=== PATIENT | female | born 1955 | race Caucasian/White ===

== ENCOUNTER → 2021-08-30 | Outpatient (BNVA) | payer MEDICARE, OTHER, SELFPAY | PROVIDERS: PCP Internal Medicine; Visit Provider Psychiatry & Neurology Neurology | DX: G43.909 Migraine, unspecified, not intractable, without status migrainosus (principal); G24.3 Spasmodic torticollis | CPT/HCPCS: 64616; 99211; J0585 ==

== ENCOUNTER → 2021-11-29 08:28 | Outpatient (BNVA) | payer MEDICARE, OTHER, SELFPAY | PROVIDERS: PCP Internal Medicine; Visit Provider Psychiatry & Neurology Neurology | DX: G24.3 Spasmodic torticollis (principal); G43.909 Migraine, unspecified, not intractable, without status migrainosus | CPT/HCPCS: 64616; 99211; J0585 ==

== ENCOUNTER → 2022-03-11 08:24 | Outpatient (BNVA) | payer MEDICARE, OTHER, SELFPAY | PROVIDERS: PCP Internal Medicine; Visit Provider Psychiatry & Neurology Neurology | DX: G43.909 Migraine, unspecified, not intractable, without status migrainosus (principal); G24.3 Spasmodic torticollis | CPT/HCPCS: 64616; 99211; J0585 ==

== ENCOUNTER → 2022-09-07 12:12 | Outpatient (BNVA) | payer MEDICARE, OTHER, SELFPAY | PROVIDERS: PCP Internal Medicine; Visit Provider Psychiatry & Neurology Neurology | DX: G24.3 Spasmodic torticollis (principal); G43.909 Migraine, unspecified, not intractable, without status migrainosus | CPT/HCPCS: 64616; 99211; J0585 ==

== ENCOUNTER 2022-12-19 07:26 | Outpatient (AMB) | payer MEDICARE, OTHER, SELFPAY ==
--- NOTE | 2022-12-19 07:31 | MHC.OFFVIS ---
Intake Vital Signs 12/19/22 07:33 Weight 160 lb 2 oz BP 110/56 L Blood Pressure Location Rt brachial Position Sitting Pulse 72 Pulse Source Pulse Oximeter Pulse Oximetry (%) 97 Oxygen Delivery Method Room Air Intake Visit Reasons: Botox(B&B) - Confirmed Intake Note: F/U Botox Injection Appraiser Irrigation Tax Required: No Allergies No Known Allergies Allergy (Verified 12/19/22 07:33) Medication List - Last Reconciled 12/19/22 by Ashley Tolbert MD cholecalciferol (vitamin D3) 25 mcg PO DAILY fluticasone propionate 50 mcg/actuation (Children's Flonase Allergy Relief) 1 spray intranasal DAILY omeprazole 20 mg PO DAILY onabotulinumtoxinA (Botox) 100 units IM [id number] sumatriptan 20 mg/actuation 20 mg intranasal Q2H PRN 90 days HPI HPI Comments History of Present Illness Details 67y/o female comes for treatment of her cervical dystonia and migraines ? Side effects including spread of toxin effect, dysphagia, breathing difficulties , bronchitis etc was discussed in detail and the patient agreed to the procedure.An informed consent was obtained ??? Botulinum toxin type A 200units X 1 -was diluted with 4 cc of normal saline at a concentration of 25 units in 0.5cc saline. Lot number [id number] expiration 06/2025 ??? Muscles injected ???Right Splenius - 75 units e ach ???Right levator 50 units each ???left splenius 25 units each Left levator 25 Right trapezius 25 units ??? Total used 200 units GERD is better with omeprazole PFSH Medical History Cervicalgia Melanoma Migraine Osteoporosis Spasmodic torticollis Tremors of nervous system Family History Family/Other HTN (hypertension) Father History of open heart surgery Mother Brain bleed Social History Alcohol intake: never Patient Tobacco Use Status: Former Tobacco user Physical Exam Vital Signs: Last Vital Signs Pulse 72 12/19/22 07:33 BP 110/56 L 12/19/22 07:33 Pulse Ox 97 07/31/23 07:33 Oxygen Delivery Method Room Air 07/31/23 07:33 Const Other: antecollis and right laterocollis General: cooperative and healthy appearing Orientation/consciousness: patient oriented x3 Neuro General: patient oriented x3, gait normal, tone normal and moves all extremities Cranial nerves: Yes CN's II-XII intact bilaterally Cognition (Neuro): normal cognition Gait exam (Neuro): Other gait observations present (antecollis) Office Procedures Botulinum toxin Injection 71081 - Dystonia Procedure code (CPT) selection complete Office Meds onabotulinumtoxinA Performing Provider: Ashley Tolbert MD Administered by: Ashley Tolbert MD on 12/19/22 15:59 Dose Route Admin Location Lot Number Expiration Date NDC Combine Mechanic 200 unit IM [id number] 06/22/25 6895-2978-74 ALLERGAN/BOTOX Comments: see HPI Assessment & Plan Assessment & Plan (1) Spasmodic torticollis: Code(s): G24.3 - Spasmodic torticollis (2) Migraine: Code(s): G43.909 - Migraine, unspecified, not intractable, without status migrainosus Plan Patient tolerated the procedure well she will call with any side effects Orders: Orders AMB Botulinum toxin Injection Today G24.3 - Spasmodic torticollis Coding Level of Care Code Est Pt Level 1 (70737) Diagnoses Spasmodic torticollis G24.3 Migraine G43.909 CPT Codes Botox Injection - Botox 4: 53211 - Dystonia ([id number])
[2022-12-19 07:33] VITALS: BP 110/56; PULSE 72; O2SAT 97
== END 2022-12-19 08:06 | disposition home or self-care (01) ==
PROVIDERS: Visit Provider Psychiatry & Neurology Neurology
DX: G24.3 Spasmodic torticollis (principal); G43.909 Migraine, unspecified, not intractable, without status migrainosus
CPT/HCPCS: 64616

== ENCOUNTER → 2022-12-19 07:26 | Outpatient (BNVA) | payer MEDICARE, OTHER, SELFPAY | PROVIDERS: Visit Provider Psychiatry & Neurology Neurology | DX: G43.909 Migraine, unspecified, not intractable, without status migrainosus (principal); G24.3 Spasmodic torticollis | CPT/HCPCS: 64616; 99211; J0585 ==

== ENCOUNTER 2023-04-03 10:12 | Outpatient (AMB) | payer MEDICARE, OTHER, SELFPAY ==
--- NOTE | 2023-04-03 10:19 | A.OFFVIS_ITS ---
Intake Vital Signs 04/03/23 10:20 Height 5 ft 9 in Weight 160 lb 8 oz BMI 23.7 BP 110/82 Blood Pressure Location Rt brachial Position Sitting Respiration 16 Pulse 82 Pulse Source Pulse Oximeter Pulse Oximetry (%) 99 Oxygen Delivery Method Room Air Intake Visit Reasons: Botox(B&B) - Confirmed Intake Note: Pt presents to office for Botox injections. Loan Processing Supervisor Required: No Allergies No Known Allergies Allergy (Verified 04/03/23 10:19) Medication List - Last Reconciled 04/03/23 by Ashley Tolbert MD cholecalciferol (vitamin D3) 25 mcg PO DAILY fluticasone propionate 50 mcg/actuation (Children's Flonase Allergy Relief) 1 spray intranasal DAILY omeprazole 20 mg PO DAILY onabotulinumtoxinA (Botox) 100 units IM [id number] sumatriptan 20 mg/actuation 20 mg intranasal Q2H PRN 90 days HPI HPI Comments History of Present Illness Details 67y/o female comes for treatment of her cervical dystonia and migraines ? Side effects including spread of toxin effect, dysphagia, breathing difficulties , bronchitis etc was discussed in detail and the patient agreed to the procedure.An informed consent was obtained ??? Botulinum toxin type A 200units X 1 -was diluted with 4 cc of normal saline at a concentration of 25 units in 0.5cc saline. Lot number [id number] expiration 06/2025 ??? Muscles injected ???Right Splenius - 75 units e ach ???Right levator 50 units each ???left splenius 25 units each Left levator 25 Right trapezius 25 units ??? Total used 200 units GERD is better with omeprazole PFSH Medical History Melanoma Cervicalgia Osteoporosis Tremors of nervous system Spasmodic torticollis Migraine Family History Family/Other HTN (hypertension) Father History of open heart surgery Mother Brain bleed Social History Alcohol intake: never Patient Tobacco Use Status: Former Tobacco user Physical Exam Vital Signs: Last Vital Signs Pulse 82 04/03/23 10:20 Resp 16 04/03/23 10:20 BP 110/82 04/03/23 10:20 Pulse Ox 99 04/03/23 10:20 Oxygen Delivery Method Room Air 04/03/23 10:20 BMI result Body Mass Index 23.7 Const Other: antecollis and right laterocollis General: cooperative and healthy appearing Orientation/consciousness: patient oriented x3 Neuro General: patient oriented x3, gait normal, tone normal and moves all extremities Cranial nerves: Yes CN's II-XII intact bilaterally Cognition (Neuro): normal cognition Gait exam (Neuro): Other gait observations present (antecollis) Office Procedures Botulinum toxin Injection 95970 - Dystonia Procedure code (CPT) selection complete Office Meds onabotulinumtoxinA 200 unit solution for injection Performing Provider: Ashley Tolbert MD Performing Location: [facility] [place] [facility] Administered by: Ashley Tolbert MD on 04/03/23 11:02 Dose Route Admin Location Dispensed Lot Number Expiration Date [facility] Surgical Garment Assembly Supervisor 200 unit IM 200 units [id number] 06/22/25 9439-4703-85 [employer]ERGAN/BOTOX Comments: see hpi Assessment & Plan Assessment & Plan (1) Spasmodic torticollis: Code(s): G24.3 - Spasmodic torticollis (2) Migraine: Code(s): G43.909 - Migraine, unspecified, not intractable, without status migrainosus Plan Patient tolerated the procedure well she will call with any side effects Orders: Orders AMB Botulinum toxin Injection Today G24.3 - Spasmodic torticollis Coding Level of Care Code Est Pt Level 1 (37470) Diagnoses Spasmodic torticollis G24.3 Migraine G43.909 CPT Codes Botox Injection - Botox 4: 24455 - Dystonia ([id number])
[2023-04-03 10:20] VITALS: BP 110/82; PULSE 82; RESP 16; O2SAT 99; BMI 23.7
== END 2023-04-03 10:50 | disposition home or self-care (01) ==
PROVIDERS: PCP Internal Medicine; Visit Provider Psychiatry & Neurology Neurology
DX: G24.3 Spasmodic torticollis (principal)
CPT/HCPCS: 64616

== ENCOUNTER → 2023-04-03 10:12 | Outpatient (BNVA) | payer MEDICARE, OTHER, SELFPAY | PROVIDERS: PCP Internal Medicine; Visit Provider Psychiatry & Neurology Neurology | DX: G24.3 Spasmodic torticollis (principal); G43.909 Migraine, unspecified, not intractable, without status migrainosus | CPT/HCPCS: 64616; 99211; J0585 ==

== ENCOUNTER 2023-09-06 07:29 | Outpatient (AMB) | payer MEDICARE, OTHER, SELFPAY ==
--- NOTE | 2023-09-06 07:33 | A.OFFVIS_ITS ---
Intake Vital Signs 09/06/23 07:34 Height 5 ft 9 in Weight 160 lb BMI 23.6 BP 122/78 Blood Pressure Location Rt brachial Position Sitting Respiration 16 Pulse 85 Pulse Source Pulse Oximeter Pulse Oximetry (%) 97 Oxygen Delivery Method Room Air Intake Visit Reasons: Botox(B&B)-conf Intake Note: Pt presents to the office for Botox injections. Fur Cutting Machine Operator Required: No Allergies No Known Allergies Allergy (Verified 09/06/23 07:34) Medication List - Last Reconciled 09/06/23 by Ashley Tolbert MD cholecalciferol (vitamin D3) 25 mcg PO DAILY fluticasone propionate 50 mcg/actuation (Children's Flonase Allergy Relief) 1 spray intranasal DAILY omeprazole 20 mg PO DAILY onabotulinumtoxinA (Botox) 100 units IM [id number] sumatriptan 20 mg/actuation 20 mg intranasal Q2H PRN 90 days HPI HPI Comments History of Present Illness Details 68y/o female comes for treatment of her cervical dystonia and migraines ? Side effects including spread of toxin effect, dysphagia, breathing difficulties , bronchitis etc was discussed in detail and the patient agreed to the procedure.An informed consent was obtained ??? Botulinum toxin type A 200units X 1 -was diluted with 4 cc of normal saline at a concentration of 25 units in 0.5cc saline. Lot number [id number] expiration 10/2025 ??? Muscles injected ???Right Splenius - 75 units e ach ???Right levator 50 units each ???left splenius 25 units each Left levator 25 Right trapezius 25 units ??? Total used 200 units GERD is better with omeprazole PFSH Medical History Melanoma Cervicalgia Osteoporosis Tremors of nervous system Spasmodic torticollis Migraine Family History Family/Other HTN (hypertension) Father History of open heart surgery Mother Brain bleed Social History Alcohol intake: never Patient Tobacco Use Status: Former Tobacco user Physical Exam Vital Signs: Last Vital Signs Pulse 85 09/06/23 07:34 Resp 16 09/06/23 07:34 BP 122/78 09/06/23 07:34 Pulse Ox 97 09/06/23 07:34 Oxygen Delivery Method Room Air 09/06/23 07:34 BMI result Body Mass Index 23.6 Const Other: antecollis and right laterocollis General: cooperative and healthy appearing Orientation/consciousness: patient oriented x3 Neuro General: patient oriented x3, gait normal, tone normal and moves all extremities Cranial nerves: Yes CN's II-XII intact bilaterally Cognition (Neuro): normal cognition Gait exam (Neuro): Other gait observations present (antecollis) Office Procedures Botulinum toxin Injection 66856 - Dystonia Procedure code (CPT) selection complete Office Meds onabotulinumtoxinA 200 unit solution for injection Performing Provider: Ashley Tolbert MD Performing Location: [facility] [place] [facility] Administered by: Ashley Tolbert MD on 09/06/23 08:12 Dose Route Admin Location Dispensed Lot Number Expiration Date [facility] Fire Sprinkler Inspector 200 unit subcut 200 units [id number] 10/20/25 8803-3322-84 [employer]ERGAN/BOTOX Comments: see hpi Assessment & Plan Assessment & Plan (1) Spasmodic torticollis: Code(s): G24.3 - Spasmodic torticollis (2) Migraine: Code(s): G43.909 - Migraine, unspecified, not intractable, without status migrainosus Plan Patient tolerated the procedure well she will call with any side effects Orders: Orders AMB Botulinum toxin Injection Today G24.3 - Spasmodic torticollis Medications: New onabotulinumtoxinA 200 units subcut ONCE 1 ea 0RF spasmodic torticollis G24.3 - Spasmodic torticollis Coding Level of Care Code Est Pt Level 1 (23075) Diagnoses Spasmodic torticollis G24.3 Migraine G43.909 CPT Codes Botox Injection - Botox 4: 12061 - Dystonia ([id number])
[2023-09-06 07:34] VITALS: BP 122/78; PULSE 85; RESP 16; O2SAT 97; BMI 23.6
== END 2023-09-06 08:06 | disposition home or self-care (01) ==
PROVIDERS: PCP Internal Medicine; Visit Provider Psychiatry & Neurology Neurology
DX: G24.3 Spasmodic torticollis (principal)
CPT/HCPCS: 64616

== ENCOUNTER → 2023-09-06 07:29 | Outpatient (BNVA) | payer MEDICARE, OTHER, SELFPAY | PROVIDERS: PCP Internal Medicine; Visit Provider Psychiatry & Neurology Neurology | DX: G24.3 Spasmodic torticollis (principal); G43.709 Chronic migraine without aura, not intractable, without status migrainosus | CPT/HCPCS: 64616; 99211; J0585 ==

== ENCOUNTER 2023-12-07 07:51 | Outpatient (AMB) | payer MEDICARE, OTHER, SELFPAY ==
--- NOTE | 2023-12-07 07:55 | MHC.OFFVIS ---
Vital Signs 12/07/23 07:56 Height 5 ft 9 in Weight 160 lb BMI 23.6 BP 108/70 Blood Pressure Location Rt brachial Position Sitting Respiration 16 Pulse 73 Pulse Source Pulse Oximeter Pulse Oximetry (%) 98 Oxygen Delivery Method Room Air Intake Visit Reasons: Botox - Confirmed Intake Note: Pt presents tot he office for Botox injections for migraines. Lining Machine Tender Required: No Allergies No Known Allergies Allergy (Verified 12/07/23 07:55) Medication List - Last Reconciled 12/07/23 by Ashley Tolbert MD cholecalciferol (vitamin D3) 25 mcg PO DAILY fluticasone propionate 50 mcg/actuation (Children's Flonase Allergy Relief) 1 spray intranasal DAILY omeprazole 20 mg PO DAILY onabotulinumtoxinA (Botox) 100 units IM [id number] sumatriptan 20 mg/actuation 20 mg intranasal Q2H PRN 90 days HPI Comments Details: 68y/o female comes for treatment of her cervical dystonia and migraines ? Side effects including spread of toxin effect, dysphagia, breathing difficulties , bronchitis etc was discussed in detail and the patient agreed to the procedure.An informed consent was obtained ??? Botulinum toxin type A 200units X 1 -was diluted with 4 cc of normal saline at a concentration of 25 units in 0.5cc saline. Lot number [id number] expiration 12/2025 ??? Muscles injected ???Right Splenius - 75 units e ach ???Right levator 50 units each ???left splenius 25 units each Left levator 25 Right trapezius 25 units ??? Total used 200 units GERD is better with omeprazole PFSH Medical History Melanoma Cervicalgia Osteoporosis Tremors of nervous system Spasmodic torticollis Migraine Family History Family/Other HTN (hypertension) Father History of open heart surgery Mother Brain bleed Social History Alcohol intake: never Patient Tobacco Use Status: Former Tobacco user Physical Exam Vital Signs: Last Vital Signs Pulse 73 12/07/23 07:56 Resp 16 12/07/23 07:56 BP 108/70 12/07/23 07:56 Pulse Ox 98 12/07/23 07:56 Oxygen Delivery Method Room Air 12/07/23 07:56 BMI result Body Mass Index 23.6 Const Other: antecollis and right laterocollis General: cooperative and healthy appearing Orientation/consciousness: patient oriented x3 Neuro General: patient oriented x3, gait normal, tone normal and moves all extremities Cranial nerves: Yes CN's II-XII intact bilaterally Cognition (Neuro): normal cognition Gait exam (Neuro): Other gait observations present (antecollis) Office Procedures Botulinum toxin Injection 84703 - Dystonia Procedure code (CPT) selection complete Office Meds onabotulinumtoxinA 200 unit solution for injection Performing Provider: Ashley Tolbert MD Performing [place] [facility] [place] [facility] Administered by: Ashley Tolbert MD on 12/07/23 08:47 Dose Route Admin Location Dispensed Lot Number Expiration Date [facility] Pulmonary Function Technologist 200 unit IM 200 units [id number] 12/20/25 1980-7029-23 [employer]ERGAN/BOTOX Comments: see HPI Assessment & Plan Assessment & Plan (1) Spasmodic torticollis: Code(s): G24.3 - Spasmodic torticollis Category: Medical (2) Migraine: Code(s): G43.909 - Migraine, unspecified, not intractable, without status migrainosus Category: Medical Plan Patient tolerated the procedure well she will call with any side effects Orders: Orders AMB Botulinum toxin Injection Today G24.3 - Spasmodic torticollis Medications: New onabotulinumtoxinA 200 units IM ONCE 1 ea 0RF spasmodic torticollis G24.3 - Spasmodic torticollis Coding Level of Care Code Est Pt Level 1 (60985) Diagnoses Spasmodic torticollis G24.3 Migraine G43.909 CPT Codes Botox Injection - Botox 4: 61763 - Dystonia ([id number])
[2023-12-07 07:56] VITALS: BP 108/70; PULSE 73; RESP 16; O2SAT 98; BMI 23.6
== END 2023-12-07 08:21 | disposition home or self-care (01) ==
PROVIDERS: PCP Internal Medicine; Visit Provider Psychiatry & Neurology Neurology
DX: G24.3 Spasmodic torticollis (principal)
CPT/HCPCS: 64616

== ENCOUNTER → 2023-12-07 07:51 | Outpatient (BNVA) | payer MEDICARE, OTHER, SELFPAY | PROVIDERS: PCP Internal Medicine; Visit Provider Psychiatry & Neurology Neurology | DX: G24.3 Spasmodic torticollis (principal); G43.909 Migraine, unspecified, not intractable, without status migrainosus | CPT/HCPCS: 64616; 99211; J0585 ==

== ENCOUNTER 2024-04-03 07:45 | Outpatient (AMB) | payer MEDICARE, OTHER, SELFPAY ==
[2024-04-03 07:51] VITALS: BMI 23.6
--- NOTE | 2024-04-03 07:51 | MHC.OFFVIS ---
Vital Signs 04/03/24 07:51 Height 5 ft 9 in Weight 160 lb BMI 23.6 Intake Visit Reasons: Botox (B&B) Allergies No Known Allergies Allergy (Verified 04/03/24 07:52) Medication List - Last Reconciled 04/03/24 by Ashley Tolbert MD cholecalciferol (vitamin D3) 25 mcg PO DAILY fluticasone propionate 50 mcg/actuation (Children's Flonase Allergy Relief) 1 spray intranasal DAILY omeprazole 20 mg PO DAILY onabotulinumtoxinA (Botox) 100 units IM [id number] sumatriptan 20 mg/actuation 20 mg intranasal Q2H PRN 90 days HPI Comments Details: 68y/o female comes for treatment of her cervical dystonia and migraines ? Side effects including spread of toxin effect, dysphagia, breathing difficulties , bronchitis etc was discussed in detail and the patient agreed to the procedure.An informed consent was obtained ??? Botulinum toxin type A 200units X 1 -was diluted with 4 cc of normal saline at a concentration of 25 units in 0.5cc saline. Lot number [id number] expiration 06/2026 ??? Muscles injected ???Right Splenius - 75 units e ach ???Right levator 50 units each ???left splenius 25 units each Left levator 25 Right trapezius 25 units ??? Total used 200 units GERD is better with omeprazole PFSH Medical History Melanoma Cervicalgia Osteoporosis Tremors of nervous system Spasmodic torticollis Migraine Family History Family/Other HTN (hypertension) Father History of open heart surgery Mother Brain bleed Social History Alcohol intake: never Patient Tobacco Use Status: Former Tobacco user Physical Exam Vital Signs: BMI result Body Mass Index 23.6 Const Other: antecollis and right laterocollis General: cooperative and healthy appearing Orientation/consciousness: patient oriented x3 Neuro General: patient oriented x3, gait normal, tone normal and moves all extremities Cranial nerves: Yes CN's II-XII intact bilaterally Cognition (Neuro): normal cognition Gait exam (Neuro): Other gait observations present (antecollis) Office Procedures Botulinum toxin Injection 62880 - Dystonia Procedure code (CPT) selection complete Office Meds onabotulinumtoxinA 200 unit solution for injection Performing Provider: Ashley Tolbert MD Performing Location: [facility] [place] [facility] Administered by: Ashley Tolbert MD on 04/03/24 08:34 Dose Route Admin Location Dispensed Lot Number Expiration Date NDC Gas Engine Operator 200 unit IM 200 units [id number] 06/22/26 1155-6912-43 [employer]ERGAN/BOTOX Comments: see HPI Assessment & Plan Assessment & Plan (1) Spasmodic torticollis: Code(s): G24.3 - Spasmodic torticollis Category: Medical (2) Migraine: Code(s): G43.909 - Migraine, unspecified, not intractable, without status migrainosus Category: Medical Qualifiers: Migraine type: other Status migrainosus presence: without status migrainosus Intractability: not intractable Qualified Code(s): G43.809 - Other migraine, not intractable, without status migrainosus Plan Patient tolerated the procedure well she will call with any side effects Orders: Orders AMB Botulinum toxin Injection Today G24.3 - Spasmodic torticollis Medications: New onabotulinumtoxinA 200 units IM ONCE 1 ea 0RF spasmodic torticollis G24.3 - Spasmodic torticollis Coding Level of Care Code Est Pt Level 1 (40074) Diagnoses Spasmodic torticollis G24.3 Other migraine without status migrainosus, not intractable G43.809 Migraine type: other Status migrainosus presence: without status migrainosus Intractability: not intractable CPT Codes Botox Injection - Botox 4: 61533 - Dystonia ([id number])
== END 2024-04-03 08:12 | disposition home or self-care (01) ==
PROVIDERS: PCP Internal Medicine; Visit Provider Psychiatry & Neurology Neurology
DX: G24.3 Spasmodic torticollis (principal)
CPT/HCPCS: 64616

== ENCOUNTER → 2024-04-03 07:45 | Outpatient (BNVA) | payer MEDICARE, OTHER, SELFPAY | PROVIDERS: PCP Internal Medicine; Visit Provider Psychiatry & Neurology Neurology | DX: G24.3 Spasmodic torticollis (principal); G43.809 Other migraine, not intractable, without status migrainosus | CPT/HCPCS: 64616; 99211; J0585 ==

== ENCOUNTER 2024-09-10 07:48 | Outpatient (AMB) | payer MEDICARE, OTHER, SELFPAY ==
--- NOTE | 2024-09-10 07:51 | A.OFFVIS_ITS ---
Vital Signs 09/10/24 07:52 09/10/24 07:56 Height 5 ft 9 in 5 ft 9 in Weight 158 lb 158 lb BMI 23.3 23.3 BP 128/70 Blood Pressure Location Rt brachial Position Sitting Pulse 75 Pulse Source Pulse Oximeter Pulse Oximetry (%) 97 Oxygen Delivery Method Room Air Intake Visit Reasons: Botox Intake Note: patient presents for Botox injection pharmacy supplied Allergies No Known Allergies Allergy (Verified 09/10/24 07:53) Medication List - Last Reconciled 09/10/24 by Ashley Tolbert MD cholecalciferol (vitamin D3) 25 mcg PO DAILY omeprazole 20 mg PO DAILY onabotulinumtoxinA (Botox) 100 units IM [id number] sumatriptan 20 mg/actuation 20 mg intranasal Q2H PRN 90 days HPI Comments Details: 69y/o female comes for treatment of her cervical dystonia and migraines ? Side effects including spread of toxin effect, dysphagia, breathing difficulties , bronchitis etc was discussed in detail and the patient agreed to the procedure.An informed consent was obtained ??? Botulinum toxin type A 200units X 1 -was diluted with 4 cc of normal saline at a concentration of 25 units in 0.5cc saline. Lot number [id number] expiration 08/2026 ??? Muscles injected ???Right Splenius - 75 units e ach ???Right levator 50 units each ???left splenius 25 units each Left levator 25 Right trapezius 25 units ??? Total used 200 units GERD is better with omeprazole PFSH Medical History Melanoma Cervicalgia Osteoporosis Tremors of nervous system Spasmodic torticollis Migraine Family History Family/Other HTN (hypertension) Father History of open heart surgery Mother Brain bleed Social History Alcohol intake: never Patient Tobacco Use Status: Former Tobacco user Physical Exam Vital Signs: Last Vital Signs Pulse 75 09/10/24 07:52 BP 128/70 09/10/24 07:56 Pulse Ox 97 09/10/24 07:52 Oxygen Delivery Method Room Air 09/10/24 07:52 BMI result Body Mass Index 23.3 Const Other: antecollis and right laterocollis General: cooperative and healthy appearing Orientation/consciousness: patient oriented x3 Neuro General: patient oriented x3, gait normal, tone normal and moves all extremities Cranial nerves: Yes CN's II-XII intact bilaterally Cognition (Neuro): normal cognition Gait exam (Neuro): Other gait observations present (antecollis) Office Procedures Botulinum toxin Injection 08253 - Dystonia Procedure code (CPT) selection complete Office Meds onabotulinumtoxinA 200 unit solution for injection Performing Provider: Ashley Tolbert MD Performing Location: [facility] [place] [facility] Administered by: Ashley Tolbert MD on 09/10/24 08:43 Dose Route Admin Location Dispensed Lot Number Expiration Date [facility] Commission Auditor 200 unit IM 200 units 2906-3103-51 ALLERGAN/BOTOX Comments: see HPI Assessment & Plan Assessment & Plan (1) Spasmodic torticollis: Code(s): G24.3 - Spasmodic torticollis Category: Medical (2) Migraine: Code(s): G43.909 - Migraine, unspecified, not intractable, without status migrainosus Category: Medical Qualifiers: Migraine type: other Status migrainosus presence: without status migrainosus Intractability: not intractable Qualified Code(s): G43.809 - Other migraine, not intractable, without status migrainosus Plan Patient tolerated the procedure well she will call with any side effects Orders: Orders AMB Botulinum toxin Injection Today G24.3 - Spasmodic torticollis Medications: New onabotulinumtoxinA 200 units IM ONCE 1 ea 0RF spasmodic torticollis G24.3 - Spasmodic torticollis Coding Level of Care Code Est Pt Level 1 (67373) Diagnoses Spasmodic torticollis G24.3 Other migraine without status migrainosus, not intractable G43.809 Migraine type: other Status migrainosus presence: without status migrainosus Intractability: not intractable CPT Codes Botox Injection - Botox 4: 67866 - Dystonia ([id number])
--- OUTSIDE RECORDS SUMMARY | 2024-09-10 07:51 | XMS_ITS | Clinical Summary ---
Author Organization [facility] [address] [facility] Address [address] [place] [address] Phone Care Team Providers Care Field Foreman Name Role Phone Etelvina Jimenez MD Primary Care Provider Allergies Active Allergy Reactions Criticality Noted Date Comments Baclofen 03/19/2019 Medications SUMAtriptan (IMITREX) 20 mg/actuation nasal spray PLEASE SEE ATTACHED FOR DETAILED DIRECTIONS 3 Active ibuprofen (ADVIL,MOTRIN) 800 mg tablet TAKE 1 TABLET EVERY 8 HOURS BY ORAL ROUTE NEEDED FOR 90 DAYS. Active fluticasone propionate (FLONASE) 50 mcg/actuation nasal spray 1 spray. prn Activ e flaxseed oiL oil by Other route. Acti ve cholecalciferol (VITAMIN D-3) 50 mcg (2,000 unit) capsule Take by mouth daily. 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 Overview (04/11/2024): Receives botox injections, followed by neurologist Age-related osteoporosis wit hout current pathological fracture 03/19/2019 Factor V Leiden carrier ([facility] V24) 03/19/2019 Surgical History Surgery Date Site/Laterality Comments COLONOSCOPY 12/01/2021 TAx1 5-year recall ESOPHAGOGASTRODUODENOSCOPY 12/01/2021 negative bx COLONOSCOPY 06/08/2016 Medical History Medical History Date Comments Colon polyp Social History Tobacco Use Types Packs/Day Years Used Date Smoking Tobacco: Former Smokeless Tobacco: Never Alcohol Use Standard Drinks/Week Comments Yes 0 (1 standard drink = 0.6 oz pur e alcohol) occasional Comments Unknown Sex and Gender Information Value Date Recorded Sex Assigned at Not on file Legal Sex Female 8:33 PM EST Gender Identity Not on file Sexual Orientation Not on file Obstetrics History Last Filed Vital Signs Vital Sign Reading Time Taken Comments Blood Pressure - - Pulse - - Temperature - - Respiratory Rate - - Oxygen Saturation - - Inhaled Oxygen Concentration - - Weight 72.1 kg (159 lb) 04/11/2024 2:48 PM EST Height 170.2 cm (5' 7 ) 04/11/2024 2:48 PM EST Body Mass Index 24.9 04/11/2024 2:48 PM EST Plan of Treatment Upcoming Encounters Date Type Department Care Team (Late st Contact Info) Description 11/25/2024 10:[address] [facility] Bone Density [address] [place] [address] Health Maintenance Due Date Last Done Comments Breast Cancer Screening 1955 DTaP,Tdap,and Td Vaccines (1 - Tdap) 1972 Depression Screening 04/23/2022 Falls Risk Assessment 04/23/2022 Hepatitis C Screening 04/23/2022 Medicare Annual Wellness Visit 04/23/2022 Social Influencers of Health Screening 04/23/2022 COVID-19 Vaccine ( season) 2024 03/22/2024, 02/28/2023, 09/29/2022, Additional history exists RSV Immunization Adult Patients (1 - 1-dose 75+ series) 2028 Osteoporosis Screening (Bone Density Screening) 11/20/2033 11/21/2023, 12/10/2021, 09/17/2020, Additional history exists Colorectal Cancer Screening: Colonoscopy 05/01/2034 05/01/2024 Pneumococcal Vaccine: 50+ Years Completed 01/20/2020, 01/04/2019 Zoster Vaccines Completed 12/04/2022, 12/20, 12/18/2013 Influenza Vaccine Completed 01/19/2024, , 01/21/2022, Additional history exists HIB Vaccines Aged Out No longer eligi ble based on patient's age to complete this topic HPV Vaccines Aged Out No longer eligi ble based on patient's age to complete this topic Hepatitis A Vaccines Aged Out No long er eligible based on patient's age to complete this topic Hepatitis B Vaccines Aged Out No long er eligible based on patient's age to complete this topic IPV Vaccines Aged Out No longer eligi ble based on patient's age to complete this topic MMR Vaccines Aged Out No longer eligi ble based on patient's age to complete this topic Meningococcal ACWY Vaccine Aged Out N o longer eligible based on patient's age to complete this topic Meningococcal B Vaccine Aged Out No l onger eligible based on patient's age to complete this topic RSV Immunization Patients Under 20 months Aged Out No longer eligible based on patient's age to complete this topic Varicella Vaccines Aged Out No longer eligible based on patient's age to complete this topic Procedures Procedure Name Priority Date/Time Associated Diagnosis Comments COLONOSCOPY Routine 05/01/2024 9:11 AM EST [facility] DEXA AXIAL SKELETON Routine 11/21/2023 1:39 PM EDT Age-related osteoporosis without current pathological fracture from Last 3 Months or Most Recently Relevant to Health Maintenance Results * COLONOSCOPY (05/01/2024 9:11 AM EST) Anatomical Region Laterality Modality Endoscopy us Historical Provider GI~PROCEDURE ORDERABLES F inal Result * MER[facility] DEXA AXIAL SKELETON (11/21/2023 1:39 PM EDT) Anatomical Region Laterality Modality Mammography 11/21/2023 12:5 8 PM EDT Narrative 11/21/2023 1:39 PM EDT [facility] Diagnostic Imaging Department [address] [place] [id number] Patient: ??ASHWIN UNDERWOOD ?/Age/Sex: 1955 - 68 - F Unit#: ??[id number] ? Location/Status: ??SPDIMAM/REG CLI ? Mnemonic/Ordering Site: ??MAMDEXAAX/SPMAM Ordering Physician: ??ELAINE UREÑA MD Merary Dexa Axial Skeleton - 11/21/23 - 1323 Report Status:Signed History: Low estrogen state due to menopause. Personal history of fracture. Comparison: 12/10/21 Findings: Bone densitometry is performed utilizing dual energy x-ray absorptiometry (DXA) in the Open SiliconigColizer unit. The lumbar spine and proximal femora are evaluated in the AP projection. The FRAX questionaire was completed. The results indicate osteoporosis, with a lumbar spine T-score of -3.9. The Z score is -2.4, indicating very low bone mineral density for age. There has been a statistically significant decrease in bone mineral density in the spine since the previous study. ??The detailed DEXA report will be mailed to the referring physician's office. DualFemur FRAX: 10-year Probability of Fracture: Major Osteoporotic 20.6 percent ??Hip 4.7 percent. IMPRESSION: Osteoporosis. [id number] Dictating Physician: ??CYNDIE SANDERS MD Electronically Signed by: ??CYNDIE SANDERS MD Dic Date/Time: ??11/21/23 1339 Sign date/Time: ??11/21/23 1339 Procedure Note Cyndie Sanders MD - 03/06/2024 [facility] Diagnostic Imaging Department [address] [place], [place] [id number] Patient: YASMINEASHWIN Nicholson /Age/Sex: 1955 - 68 - F Unit#: [id number] Location/Status: SPDIMAM/REG CLI Mnemonic/Ordering Site: MAMDEXAAX/SPMAM Ordering Physician: ELAINE UREÑA MD Merary Dexa Axial Skeleton - 11/21/23 - 1323 Report Status:Signed History: Low estrogen state due to menopause. Personal history offracture. Comparison: 12/10/21 Findings: Bone densitometry is performed utilizing dual energy x-ray absorptiometry(DXA) in the Open SiliconigColizer unit. The lumbar spine and proximal femora areevaluated in the AP projection. The FRAX questionaire was completed. The results indicate osteoporosis, with a lumbar spine T-score of -3.9.The Z score is -2.4, indicating very low bone mineral density for age. There has been a statistically significant decrease in bone mineraldensity in the spine since the previous study. The detailed DEXA report will bemailed to the referring physician's office. DualFemur FRAX: 10-year Probability of Fracture: Major Osteoporotic 20.6 percent Hip 4.7 percent. IMPRESSION: Osteoporosis. [id number] Dictating Physician: CYNDIE SANDERS MD Electronically Signed by: CYNDIE SANDERS MD Dic Date/Time: 11/21/23 1339 Sign date/Time: 11/21/23 1339 us Elaine Ureña MD IMG BI PROCEDURES Final Result from Last 3 Months or Most Recently Relevant to Health Maintenance Insurance MEDICARE [facility] Care Teams Field Foreman Relationship Specialty Start Date End Date Etelvina Jimenez MD [address] [address] PCP - General Internal Medicine 03/04/19
--- OUTSIDE RECORDS SUMMARY | 2024-09-10 07:51 | XMS_ITS | Clinical Summary ---
Author Organization [facility] Address [address] [place] [address] Care Team Providers Care Multi Craft Maintenance Technician Name Role Phone Etelvina Jimenez MD Primary Care Prov ider Allergies Active Allergy Reactions Criticality Noted Date Comments Baclofen 03/19/2019 Medications Medication Sig Dispensed Refills Start Date End Date Status fluticasone (FLONASE) 50 MCG/ACT nasal spray spray/apply 1 spray in each nostril daily. 0 Active SUMAtriptan (IMITREX) 20 MG/ACT nasal spray spray or apply 1 spray inside Nose every 2 (two) hours as needed for migraine. 0 Active IBUPROFEN PO Take 800 mg by mouth every 8 (eight) hours as needed. 0 Active Cholecalciferol (VITAMIN D3) 50 MCG (2000 UT) capsule Take 2,000 Units by mouth daily. 0 Active Active Problems Problem Noted Date Diagnosed Date Hypogammaglobulinemia 03/19/2019 Age-related osteoporosis wit hout current pathological fracture 03/19/2019 Factor V Leiden carrier 03/19/2019 Social History Tobacco Use Types Packs/Day Years Used Date Smoking Tobacco: Former Smokeless Tobacco: Never Alcohol Use Standard Drinks/Week Comments Yes 0 (1 standard drink = 0.6 oz pur e alcohol) Occas. Sex and Gender Information Value Date Recorded Sex Assigned at Not on file Gender Identity Not on file Sexual Orientation Not on file Last Filed Vital Signs Vital Sign Reading Time Taken Comments Blood Pressure 130/72 04/16/2019 1:23 PM EST Pulse 79 04/16/2019 1:23 PM EST Temperature 37.2 ??C (99 ??F) 04/16/2019 1:23 PM EST Respiratory Rate - - Oxygen Saturation - - Inhaled Oxygen Concentration - - Weight 71.2 kg (157 lb) 04/16/2019 1:23 PM EST Height 174 cm (5' 8.5 ) 04/16/2019 1:23 PM EST Body Mass Index 23.52 04/16/2019 1:23 PM EST Plan of Treatment Health Maintenance Due Date Last Done Comments Hepatitis C Screening 1955 COVID-19 Vaccine (#1) 1955 Depression Screening 1965 Preventative Health Evaluation 1971 Colon Cancer Screening (Colonoscopy) 1998 Breast Cancer Screening (Mammogram) 2003 Fall Risk Assessment 2018 Osteoporosis Screening (DEXA Scan) 2018 Shingrix-Zoster Vaccine (2 of 2) 03/01/2019 01/04/2019 Pneumococcal Vaccine (2 of 2 - PPSV23 or PCV20) 01/05/2020 01/04/2019 Influenza Vaccine (#1) 2024 9, 02/12/2018, 12/20/2016, Additional history exists DTap / Tdap / Td (3 - Td or Tdap) 02/14/2028 02/13/2018, 01/14/2008 RSV Adult > 60+ Yrs or (1 - 1-dose 75+ series) 2028 Hepatitis B Vaccines Aged Out No long er eligible based on patient's age to complete this topic RSV Ped < 20 months Aged Out No longe r eligible based on patient's age to complete this topic Care Teams Multi Craft Maintenance Technician Relationship Specialty Start Date End Date Etelvina Jimenez MD [address] [place] [address] PCP - General Internal Medicine 03/04/19
[2024-09-10 07:52] VITALS: PULSE 75; O2SAT 97; BMI 23.3
[2024-09-10 07:56] VITALS: BP 128/70; BMI 23.3
== END 2024-09-10 08:15 | disposition home or self-care (01) ==
LOC: HO.HSMS 07:48
PROVIDERS: PCP Internal Medicine; Visit Provider Psychiatry & Neurology Neurology
DX: G24.3 Spasmodic torticollis (principal)
CPT/HCPCS: 64616

== ENCOUNTER → 2024-09-10 07:48 | Outpatient (BNVA) | payer MEDICARE, OTHER, SELFPAY | PROVIDERS: PCP Internal Medicine; Visit Provider Psychiatry & Neurology Neurology | DX: G43.809 Other migraine, not intractable, without status migrainosus (principal); G24.3 Spasmodic torticollis | CPT/HCPCS: 64616; 99211; J0585 ==

== ENCOUNTER 2024-12-10 07:53 | Outpatient (AMB) | payer MEDICARE, OTHER, SELFPAY ==
--- OUTSIDE RECORDS SUMMARY | 2024-12-10 07:56 | XMS_ITS | Clinical Summary ---
Author Organization [facility] Address [address] [place] [address] Care Team Providers Care Relationship Mgr Name Role Phone Etelvina Jimenez MD Primary [...] 79 04/16/2019 1:23 PM EST Temperature 37.2 C (99 F) 04/16/2019 1:23 PM EST Respiratory Rate - [...] or PCV20) 01/05/2020 01/04/2019 Influenza Vaccine (#1) 2025 9, 02/12/2018, 12/20/2016, Additional history exists DTap [...] age to complete this topic Care Teams Relationship Mgr Relationship Specialty Start Date End Date Etelvina Jimenez MD [address] [place] [address] PCP - General Internal Medicine 03/04/19
--- OUTSIDE RECORDS SUMMARY | 2024-12-10 07:56 | XMS_ITS | Data Portability ---
Author Organization [facility], Main Office Address [address] [facility] [address] [place] [address] Care Team Providers Care Small Products Assembler Name Role Phone JAYNE TREVINO Referring Provider TAMIKO UREÑA Helicopter Crew Chief NICHOLE HURST Polymer Chemist HAN HADDAD Helicopter Mechanic MIRELA GUY Chain Maker JULIA CASIANO Primary Care Provider Assessment No assessment recorded. Plan of Treatment Reminders Order Date Submit Date Provider Last Modified By Organization Details Last Modified Time Details Appointments None recorded . Lab urinalys is, dipstick 2024 025 constantino In-Office Order, Internal Use Only DO Not Attach Compendium DO Not Attach Compendium, Do Not Delete/merge, [id number] 5 11:27:32 urinalys is complete , reflex culture 2024 025 [facility], [address] [place], [address], 11:51:33 lipid panel, serum 2024 025 [facility]OR [facility], [address] [place] [address], [address], 5 06:07:33 urinalys is complete , reflex culture 2024 025 [employer] [facility], [address] [place], [address], 5 10:41:42 urinalys is, dipstick 2023 024 STURGIS In-Office Order, Internal Use Only DO Not Attach Compendium DO Not Attach Compendium, Do Not Delete/merge, [id number] 4 09:59:09 Referral urologis t referral - Recurren t bladder symptoms which started over the last year. One document ed UTI. 2024 025 [facility], [address] [place], [address], 5 11:24:11 Procedures None recorded . Surgeries None recorded . Imaging None recorded . Medication Orders cephalex in 500 mg capsule 2024 025 [id number], [address] [place] [address], [address], 5 05:01:08 sulfamet hoxazole 800 mg-trime thoprim 160 mg tablet 2023 024 [id number], [address] [place], [address], 4 09:52:08 Patient TargetsNo targets recorded. Patient Instructions Encounter Date Encounter Id Patient Instructions Last Modified By Organization Details Last Modified Time 12/25/2023 [id number] painful urinatio n (dysuria): care instructions awychowski Not available 12/25/2023 10:05:38 09/14/2024 [id number] painful urinatio n (dysuria): care instructions awychowski Not available 09/14/2024 11:35:41 11/28/2024 [id number] osteoporosis: ca re instructions Not available 11/28/2024 08:28:32 gastroesophageal reflux disease (GERD): care instructions Not available 11/28/2024 08:28:32 factor V leiden: care instructions Not available 11/28/2024 08:28:32 12/07/2024 [id number] painful urinatio n (dysuria): care instructions constantino Not available 12/07/2024 11:22:20 Reason for Referral Urologist Referral for Dysur ia Recurrent bladder symptoms which started over the last year. One documented UTI. Referring Physician: Isaiah Pastor, Family Medicine, Encounter Date: 12/07/2024 Results Created Date Observation Date Name Description Value Unit Range Abnormal Flag Note LastModifiedBy Organization Detail LastModifiedTime 12/25/19 24 12/28/2023 URINE CULTU RE, ROUTI NE urine culture, routine Final report abnormal Not Available [facility] ([facility]) [address] [facility], [place], [address], 12/28/2023 18:05:58 12/25/19 24 12/28/2023 URINE CULTU RE, ROUTI NE result 1 Escher ichia coli abnormal 10,00 0-25, 000 colon y formi ng units per mL Cefaz donovan <=4 ug/mL Cefaz donovan with an JOSSELINE <=16 predi cts susce ptibi lity to the oral agent s cefac rian, cefdi farhan, cefpo doxim e, cefpr ozil, cefur oxime , cepha lexin , and lorac arbef when used for thera py of uncom plica inder urina ry tract infec tions due to E. coli, Klebs iella pneum oniae , and Prote us mirab ilis. Not Available [facility] ([facility]) [address] [facility], [place], [address], 12/28/2023 18:05:58 12/25/19 24 12/28/2023 URINE CULTU RE, ROUTI NE antimicrobia l susceptibili ty Commen t S = Susce ptibl e; I = Inter media te; R = Resis tant P = Posit shar; N = Negat shar MICS are expre ssed in micro grams per mL Antib iotic RSLT# 1 RSLT# 2 RSLT# 3 RSLT# 4 Amoxi cilli n/Cla vulan ic Acid S Ampic illin S Cefep rae S Ceftr iaxon e S Cefur oxime S Cipro floxa yanna S Ertap enem S Genta micin S Imipe nem S Levof loxac in S Merop enem S Nitro furan toin S Piper acill in/Ta zobac de santiago S Tetra cycli ne S Tobra mycin S Trime thopr im/Torres lfa S Not Available [facility] ([facility]) [address], [place], [address], 12/28/2023 18:05:58 12/25/19 24 12/25/2023 urina lysis , dipst ick Leukocytes Large Not Available In-Offi ce Order Internal Use Only DO Not Attach Compendium DO Not Attach Compendium, Do Not Delete/merge, 12/25/2023 09:15:04 12/25/19 24 12/25/2023 urina lysis , dipst ick Nitritie negati ve Not Available In-Office Order Internal Use Only DO Not Attach Compendium DO Not Attach Compendium, Do Not Delete/merge, 12/25/2023 09:15:04 12/25/19 24 12/25/2023 urina lysis , dipst ick Urobilinogen .2 Not Available In-Of fice Order Internal Use Only DO Not Attach Compendium DO Not Attach Compendium, Do Not Delete/merge, 12/25/2023 09:15:04 12/25/19 24 12/25/2023 urina lysis , dipst ick Protein Negati ve Not Available In-Office Order Internal Use Only DO Not Attach Compendium DO Not Attach Compendium, Do Not Delete/merge, 12/25/2023 09:15:04 12/25/19 24 12/25/2023 urina lysis , dipst ick pH 6.0 Not Available In-Office Order Internal Use Only DO Not Attach Compendium DO Not Attach Compendium, Do Not Delete/merge, 12/25/2023 09:15:04 12/25/19 24 12/25/2023 urina lysis , dipst ick Blood Modera te Not Available In-Office Order Internal Use Only DO Not Attach Compendium DO Not Attach Compendium, Do Not Delete/merge, [facility] 12/25/2023 09:15:04 12/25/19 24 12/25/2023 urina lysis , dipst ick Specific Opdyke 1.010 Not Available In-Off ice Order Internal Use Only DO Not Attach Compendium DO Not Attach Compendium, Do Not Delete/merge, [facility] 12/25/2023 09:15:04 12/25/19 24 12/25/2023 urina lysis , dipst ick Ketone Negati ve Not Available In-Office Order Internal Use Only DO Not Attach Compendium DO Not Attach Compendium, Do Not Delete/merge, [facility] 12/25/2023 09:15:04 12/25/19 24 12/25/2023 urina lysis , dipst ick Bilirubin Negati ve Not Available In-Office Order Internal Use Only DO Not Attach Compendium DO Not Attach Compendium, Do Not Delete/merge, [facility] 12/25/2023 09:15:04 12/25/19 24 12/25/2023 urina lysis , dipst ick Glucose Negati ve Not Available In-Office Order Internal Use Only DO Not Attach Compendium DO Not Attach Compendium, Do Not Delete/merge, [facility] 12/25/2023 09:15:04 12/25/19 24 12/25/2023 urina lysis , dipst ick Appearance Cloudy Not Available In-Offi ce Order Internal Use Only DO Not Attach Compendium DO Not Attach Compendium, Do Not Delete/merge, [facility] 12/25/2023 09:15:04 12/25/19 24 12/25/2023 urina lysis , dipst ick Color Pale Yellow Not Available In-Office Order Internal Use Only DO Not Attach Compendium DO Not Attach Compendium, Do Not Delete/merge, [facility] 12/25/2023 09:15:04 04/26/20 24 04/26/2024 LIPID PANEL cholesterol, total 199 mg/dL 100-19 9 normal Not Available [facility] ([facility]) [address] [facility], [place], [address], 04/27/2024 06:08:37 04/26/20 24 04/26/2024 LIPID PANEL triglyceride s 64 mg/dL 0-149 normal Not Available [facility] ([facility]) [address] [place], [address], 04/27/2024 06:08:37 04/26/20 24 04/26/2024 LIPID PANEL HDL cholesterol 70 mg/dL >39 normal Not Available [facility]) [address] [place], [address], 04/27/2024 06:08:37 04/26/20 24 04/26/2024 LIPID PANEL VLDL cholesterol kadie 12 mg/dL 5-40 Not Available [facility] ([facility]) [address] [facility] [place], [address], 04/27/2024 06:08:37 04/26/20 24 04/26/2024 LIPID PANEL LDL chol calc ([facility]) 117 mg/dL 0-99 above high normal Not Available [facility] ([facility]) [address] [place], [address], 04/27/2024 06:08:37 04/26/20 24 04/26/2024 LIPID PANEL LDL calc comment: 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 5 normal Not Available [facility] ([facility]) [address] [facility] [place], [address], 09/28/2024 20:09:46 09/27/19 25 09/27/2024 UA WITH CULTU RE REFLE X urine-color Yellow yellow Not Available [facility] ([facility]) [address] [facility], [place], [address], 09/28/2024 20:09:46 09/27/19 25 09/27/2024 UA WITH CULTU RE REFLE X appearance Clear clear Not Available [facility] ([facility]) [address] [facility], [place], [address], 09/28/2024 20:09:46 09/27/19 25 09/27/2024 UA WITH CULTU RE REFLE X WBC esterase Trace negati ve abnormal Not Available [facility] ([facility]) [address] [place], [address], 09/28/2024 20:09:46 09/27/19 25 09/27/2024 UA WITH CULTU RE REFLE X protein Negati ve negati ve/tra ce Not Available [facility] ([facility]) [address] [place], [address], 09/28/2024 20:09:46 09/27/19 25 09/27/2024 UA WITH CULTU RE REFLE X glucose Negati ve negati ve Not Available [facility] ([facility]) [address] [place], [address], 09/28/2024 20:09:46 09/27/19 25 09/27/2024 UA WITH CULTU RE REFLE X ketones Negati ve negati ve Not Available [facility] ([facility]) [address] [place], [address], 09/28/2024 20:09:46 09/27/19 25 09/27/2024 UA WITH CULTU RE REFLE X occult blood Negati ve negati ve Not Available [facility] ([facility]) [address] [place], [address], 09/28/2024 20:09:46 09/27/19 25 09/27/2024 UA WITH CULTU RE REFLE X bilirubin Negati ve negati ve Not Available [facility] ([facility]) [address] [facility], [place], [address], 09/28/2024 20:09:46 09/27/19 25 09/27/2024 UA WITH CULTU RE REFLE X urobilinogen ,semi-qn 0.2 mg/dL 0.2-1. 0 normal Not Available [facility] ([facility]) [address] [place], [address], 09/28/2024 20:09:46 09/27/19 25 09/27/2024 UA WITH CULTU RE REFLE X nitrite, urine Negati ve negati ve Not Available [facility] ([facility]) [address] [facility], [place], [address], 09/28/2024 20:09:46 09/27/19 25 09/27/2024 UA WITH CULTU RE REFLE X microscopic examination See below: Micro scopi c was indic ated and was perfo rmed. Not Available [facility] ([facility]) [address] [facility], [place], [address], 09/28/2024 20:09:46 09/27/19 25 09/27/2024 UA WITH CULTU RE REFLE X WBC 0-5 /hpf 0 - 5 Not Available [facility] ([facility]) [address] [facility], [place], [address], 09/28/2024 20:09:46 09/27/19 25 09/27/2024 UA WITH CULTU RE REFLE X RBC None seen /hpf 0 - 2 Not Available [facility] ([facility]) [address] [facility], [place], [address], 09/28/2024 20:09:46 09/27/19 25 09/27/2024 UA WITH CULTU RE REFLE X epithelial cells (non renal) 0-10 /hpf 0 - 10 Not Available [facility] ([facility]) [address] [facility], [place], [address], 09/28/2024 20:09:46 09/27/19 25 09/27/2024 UA WITH CULTU RE REFLE X epithelial cells (renal) 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 MAKER Not Available [facility] ([facility]) [address] [facility], [place], [address], 09/28/2024 20:09:46 09/27/19 25 09/27/2024 UA WITH CULTU RE REFLE X casts None seen /lpf none seen Not Available [facility] ([facility]) [address] [facility], [place], [address], 09/28/2024 20:09:46 09/27/19 25 09/27/2024 UA WITH CULTU RE REFLE X cast type 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 MAKER Not Available [facility] ([facility]) [address] [facility], [place], [address], 09/28/2024 20:09:46 09/27/19 25 09/27/2024 UA WITH CULTU RE REFLE X crystals 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 Not Available [facility] ([facility]) [address] [facility], [place], [address], 09/28/2024 20:09:46 09/27/19 25 09/27/2024 UA WITH CULTU RE REFLE X crystal type 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 MAKER Not Available [facility]) [address] [facility], [place], [address], 09/28/2024 20:09:46 09/27/19 25 09/27/2024 UA WITH CULTU RE REFLE X mucus threads 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 MAKER Not Available [facility] ([facility]) [address] [facility], [place], [address], 09/28/2024 20:09:46 09/27/19 25 09/27/2024 UA WITH CULTU RE REFLE X bacteria None seen none seen/f ew Not Available [facility] ([facility]) [address] [facility], [place], [address], 09/28/2024 20:09:46 09/27/19 25 09/27/2024 UA WITH CULTU RE REFLE X yeast 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 MAKER Not Available [facility] ([facility]) [address] [facility], [place], [address], 09/28/2024 20:09:46 09/27/19 25 09/27/2024 UA WITH CULTU RE REFLE X trichomonas 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 MAKER Not Available [facility] ([facility]) [address] [facility], [place], [address], 09/28/2024 20:09:46 09/27/19 25 09/27/2024 UA WITH CULTU RE REFLE X comment 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 Not Available [facility] ([facility]) [address] [facility], [place], [address], 09/28/2024 20:09:46 09/27/19 25 09/28/2024 UA WITH CULTU RE REFLE X urine culture, routine Final report Not Available [facility] ([facility]) [address] [facility], [place], [address], 09/28/2024 20:09:46 09/27/19 25 09/28/2024 UA WITH CULTU RE REFLE X result 1 COMMEN T Cultu re shows less than 10,00 0 colon y formi ng units of bacte macy per christopher liter of urine . This colon y count is not gener ally consi dered to be clini meng signi saniya t. Not Available [facility] ([facility]) [address] [place], [address], 09/28/2024 20:09:46 11/29/19 25 11/28/2024 LIPID PANEL cholesterol, total 194 mg/dL 100-19 9 normal Not Available [facility] ([facility]) [address] [place], [address], 11/29/2024 06:07:33 11/29/19 25 11/28/2024 LIPID PANEL triglyceride s 69 mg/dL 0-149 normal Not Available [facility] ([facility]) [address] [place], [address], 11/29/2024 06:07:33 11/29/19 25 11/28/2024 LIPID PANEL HDL cholesterol 70 mg/dL >39 normal Not Available [facility]) [address] [place], [address], 11/29/2024 06:07:33 11/29/19 25 11/28/2024 LIPID PANEL VLDL cholesterol kadie 13 mg/dL 5-40 Not Available [facility] ([facility]) [address] [place], [address], 11/29/2024 06:07:33 11/29/19 25 11/28/2024 LIPID PANEL LDL chol calc ([facility]) 111 mg/dL 0-99 above high normal Not Available [facility] ([facility]) [address] [place], [address], 11/29/2024 06:07:33 11/29/19 25 11/28/2024 LIPID PANEL LDL calc comment: 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 Not Available [facility] ([facility]) [address] [place], [address], 11/29/2024 06:07:33 12/08/19 25 12/07/2024 urina lysis , dipst ick Leukocytes Large Not Available In-Offi ce Order Internal Use Only DO Not Attach Compendium DO Not Attach Compendium, Do Not Delete/merge, [facility] 12/07/2024 10:59:20 12/08/19 25 12/07/2024 urina lysis , dipst ick Nitritie negati ve Not Available In-Office Order Internal Use Only DO Not Attach Compendium DO Not Attach Compendium, Do Not Delete/merge, [facility] 12/07/2024 10:59:20 12/08/19 25 12/07/2024 urina lysis , dipst ick Urobilinogen .2 Not Available In-Of fice Order Internal Use Only DO Not Attach Compendium DO Not Attach Compendium, Do Not Delete/merge, [facility] 12/07/2024 10:59:20 12/08/19 25 12/07/2024 urina lysis , dipst ick Protein Negati ve Not Available In-Office Order Internal Use Only DO Not Attach Compendium DO Not Attach Compendium, Do Not Delete/merge, [facility] 12/07/2024 10:59:20 12/08/19 25 12/07/2024 urina lysis , dipst ick pH 6.0 Not Available In-Office Order Internal Use Only DO Not Attach Compendium DO Not Attach Compendium, Do Not Delete/merge, [facility] 12/07/2024 10:59:20 12/08/19 25 12/07/2024 urina lysis , dipst ick Blood Negati ve Not Available In-Office Order Internal Use Only DO Not Attach Compendium DO Not Attach Compendium, Do Not Delete/merge, [facility] 12/07/2024 10:59:20 12/08/19 25 12/07/2024 urina lysis , dipst ick Specific Opdyke 1.010 Not Available In-Off ice Order Internal Use Only DO Not Attach Compendium DO Not Attach Compendium, Do Not Delete/merge, [facility] 12/07/2024 10:59:20 12/08/19 25 12/07/2024 urina lysis , dipst ick Ketone Negati ve Not Available In-Office Order Internal Use Only DO Not Attach Compendium DO Not Attach Compendium, Do Not Delete/merge, [facility] 12/07/2024 10:59:20 12/08/19 25 12/07/2024 urina lysis , dipst ick Bilirubin Negati ve Not Available In-Office Order Internal Use Only DO Not Attach Compendium DO Not Attach Compendium, Do Not Delete/merge, [facility] 12/07/2024 10:59:20 12/08/19 25 12/07/2024 urina lysis , dipst ick Glucose Negati ve Not Available In-Office Order Internal Use Only DO Not Attach Compendium DO Not Attach Compendium, Do Not Delete/merge, [facility] 12/07/2024 10:59:20 12/08/19 25 12/07/2024 urina lysis , dipst ick Appearance Clear Not Available In-Offi ce Order Internal Use Only DO Not Attach Compendium DO Not Attach Compendium, Do Not Delete/merge, [facility] 12/07/2024 10:59:20 12/08/19 25 12/07/2024 urina lysis , dipst ick Color Pale Yellow Not Available In-Office Order Internal Use Only DO Not Attach Compendium DO Not Attach Compendium, Do Not Delete/merge, [facility] 12/07/2024 10:59:20 12/05/19 24 11/21/2023 bone densi ty No observ ation record ed. Not Available 12/05 07:24:16 10/08/19 25 10/04/2024 MAMMO , scree nora, digit al, bilat eral PROCED URE: MM Digita l Mammo Screen ing INDICA TION: Screen ing for breast cancer . No known palpab le abnorm alitie s. COMPAR PRISCILLA: Multip le prior mammog irena dating back to 022. TECHNI QUE: Full-f ield digita l CC and MLO 3D tomosy nthesi s images of both breast s were acquir ed. Comput er-aid ed detect ion (CAD) was utiliz ed in the interp retati on of this study. DENSIT Y: The breast s are hetero geneou sly dense, which may obscur e small masses . FINDIN GS: No suspic ious masses , suspic ious microc alcifi cation s, or areas of oralia ectura l distor tion are seen in either breast to sugges t malign christina. IMPRES ISAAC: No mammog raphic eviden ce of malign christina. RECOMM ENDATI ON: Annual mammog raphic screen ing BI-RAD S: 1 (Negat shar) Lay letter mailed to yani myers WSN: [id number] Orderi ng Physic mauro: oJrge mcfarlane, Zelda alexander Dictat ed By: Esteban Bennett MD Dictat ed Date/T rae: 4:53 pm Review ed By: Esteban Bennett MD Signed By: Esteban Bennett MD Signed Date/T rae: 4:53 pm Transc ribed By: HARI Transc riptio n Date/T rae: 4:51 pm Birads : Yani t Class: Outpat ient [id number] [facility] [address] [place], [address], 10/08/2024 13:34:13 10/08/19 25 10/07/2024 MAMMO , scree nora, digit al, bilat eral No observ ation record ed. [facility] [address], [place], [address], 10/07/2024 19:11:20 11/26/19 25 11/25/2024 bd bone densi ty dxa axial skele ton See Note [facility] , a [facility] Yani myers Name: MATTHEW PARK Date of : 1954 Reason for Exam: osteop orosis Exam Date: 2024 [id number] EST Report Status : Final Orderi ng Provid er: TAMIKO SALAZAR PCP: ZELDA MCFARLANE Histor y: Low estrog en state due to menopa use. Person al histor y of fractu re. Former smoker . Compar priscilla: 11/21/23 Findin gs: Bone densit ometry is perfor med utiliz ing dual energy x-ray absorp tiomet ry (DXA) in the [employer] Prodig y unit. The lumbar spine and proxim al femora are evalua inder in the AP projec tion. The FRAX questi onaire was comple inder. The result s indica te osteop orosis , with a lumbar spine T-scor e of -3.9. The Z score is -2.4, indica ting very low bone minera l densit y for age. There is been no statis ticall y signif icant change . The detail ed DEXA report will be mailed to the referr ing physic mauro's office . DualFe mur FRAX: 10-yea r Probab ility of Fractu re: Major Osteop orotic 22.1 percen t Hip 5.6 percen t. IMPRES ISAAC: Osteop orosis . Telera oral LAWS ([id number] ) ------ -- FINAL REPORT ------ -- Dictat ed By: Enio Pratt Dictat ed Date: 2024 17:14 ET Assign ed Physic mauro: Enio Pratt Review ed and Electr onical ly Signed By: Enio Pratt Signed Date: 2024 17:15 ET Workst ation ID: [id number] Transc ribed By: Self Edit Transc ribed Date: 2024 17:14 ET [facility] Dept [address] [place] [address], [id number], 11/25/2024 18:34:32 Result Notes Documentation Provider Name and Address Organization Details Recorded Time Mammo, Screening, Digital, Bilateral : PROCEDURE: MM Digital Mammo Screening INDICATION: Screening for breast cancer. No known palpable abnormalities. COMPARISON: Multiple prior mammograms dating back to 09/30/2021. TECHNIQUE: Full-field digital CC and MLO 3D tomosynthesis images of both breasts were acquired. Computer-aided detection (CAD) was utilized in the interpretation of this study. DENSITY: The breasts are heterogeneously dense, which may obscure small masses. FINDINGS: No suspicious masses, suspicious microcalcifications, or areas of architectural distortion are seen in either breast to suggest malignancy. IMPRESSION: No mammographic evidence of malignancy. RECOMMENDATION: Annual mammographic screening BI-RADS: 1 (Negative) Lay letter mailed to patient WSN: [id number] Ordering Physician: Julia Casiano Dictated By: Esteban Brown MD Dictated Date/Time: 10/07/24 4:53 pm Reviewed By: Esteban Brown MD Signed By: Esteban Brown MD Signed Date/Time: 10/07/24 4:53 pm Transcribed By: HARI Knife Sharpener Date/Time: 10/07/24 4:51 pm Birads: [facility] Class[facility] 10/08/[facility]24 13:34:13 Problems Name Problem SNOMED Code Status Onset Date Resolution Date Notes Provider Name and Address Organization Details Recorded Time Osteopor osis 25812910 Active MIGUEL Browning, [facility] 0 09:30:42 Administ ration of bacteria l and viral vaccine Completed 200712/10/2013 RECORDED 01/14/20 08 1:43PM BY ALINA KIRBY, OFFICE VISIT Not Available [facility] 4 15:11:59 Administ ration of bacteria l and viral vaccine Completed 200712/30/2013 RECORDED 01/14/20 08 1:43PM BY ALINA KIRBY, OFFICE VISIT Not Available [facility] 4 05:59:56 Chest pain [id number] Completed 200712/10/2013 IMPRESSI ON: 1 WEEK, NL EKG AND IT SOUNDS RELATED TO STRESS AND GASTRITI S, PT WILL TAKE AXID DAILY, TRY LORAZEPA M FOR SLEEP OR ANXIETY, RESTART SOME COUNSELI NG AND LOOK AT WORK SITUATIO N; RECORDED 04/16/20 08 2:27PM BY MIGUEL NDIAYE, ANNOTATI ON/ADDEN DUM Not Available [facility] 4 15:11:58 Chest pain [id number] Completed 200712/30/2013 IMPRESSI ON: 1 WEEK, NL EKG AND IT SOUNDS RELATED TO STRESS AND GASTRITI S, PT WILL TAKE AXID DAILY, TRY LORAZEPA M FOR SLEEP OR ANXIETY, RESTART SOME COUNSELI NG AND LOOK AT WORK SITUATIO N; RECORDED 04/16/20 08 2:27PM BY MIGUEL NDIAYE, ANNOTATI ON/ADDEN DUM Not Available [facility] 4 05:59:56 Acute upper respirat ory infectio n [id number] Completed 200812/10/2013 IMPRESSI ON: RESOLVIN G; RECORDED 09/13/19 09 8:36AM BY MICHELLE KIRBY MA, ANNOTATI ON/ADDEN DUM Not Available [facility] 4 15:11:58 Acute upper respirat ory infectio n [id number] Completed 200812/30/2013 IMPRESSI ON: RESOLVIN G; RECORDED 09/13/19 09 8:36AM BY MICHELLE KIRBY MA, ANNOTATI ON/ADDEN DUM Not Available [facility] 4 05:59:56 Acute gastriti s [id number] Completed 201112/10/2013 IMPRESSI ON: PAIN ON EXAM, TAKE AXID DAILY; RECORDED 01/11/20 12 10:01AM BY CINDY BROWNINGATI ON/ADDEN DUM Not Available [facility] 4 15:11:58 Allergic rhinitis 34388403 Completed 201112/10/2013 IMPRESSI ON: TAKE ZYRTEC DAILY; RECORDED 01/11/20 12 10:01AM BY CINDY BROWNINGATI ON/ADDEN DUM Not Available [facility] 4 15:11:58 Screenin g for malignan t neoplasm of breast Completed 201112/10/2013 RECORDED 01/11/20 12 10:00AM BY CINDY BROWNINGATI ON/ADDEN DUM Not Available [facility] 4 15:11:58 Screenin g for malignan t neoplasm of cervix Completed 201112/10/2013 RECORDED 01/11/20 12 10:01AM BY CINDY BROWNINGATI ON/ADDEN DUM Not Available [facility] 4 15:11:58 Vernal conjunct ivitis [id number] Completed 201112/10/2013 RECORDED 01/11/20 12 10:01AM BY ELFEGO BROWNING ON/ADDEN DUM Not Available [facility] 4 15:11:58 Influenz a vaccine needed [id number] 06 Completed 201112/10/2013 RECORDED 01/11/20 12 10:16AM BY SAIDA BARRETO, OFFICE VISIT Not Available [facility] 4 15:11:59 Well child [id number] Completed 201112/10/2013 IMPRESSI ON: PAP TODAY; RECORDED 01/11/20 12 10:02AM BY ELFEGO BROWNING ON/ADDEN DUM Not Available [facility] 4 15:11:59 Impacted cerumen 15407616 Completed 201112/10/2013 RECORDED 01/11/20 12 10:01AM BY ELFEGO BROWNING ON/ADDEN DUM Not Available [facility] 4 15:11:59 Pain of joint of hand 530618894 Completed 201112/10/2013 RECORDED 01/11/20 12 10:01AM BY ELFEGO BROWNING ON/ADDEN DUM Not Available [facility] 4 15:12:00 Shoulder joint pain 581795071 Completed 201112/10/2013 IMPRESSI ON: RIGHT UPPER TRAPEZIU S INTO ARM, TRIGGERI NG MIGRAINE S, PAST TX THROUGH DR BERNAL WITH PT AND NEG EMG, ALSO HAD MRI OF CERVICAL SPINE IN PAST, WPT WILL FOLLOWUP WITH DR BERNAL AND SEE DOC AT [facility],; RECORDED 01/11/20 12 10:01AM BY ELFEGO BROWNING ON/ADDEN DUM Not Available [facility] 4 15:12:00 Screenin g for malignan t neoplasm of colon Completed 201112/10/2013 RECORDED 01/11/20 12 10:01AM BY ELFEGO BROWNING ON/ADDEN DUM Not Available [facility] 4 15:12:00 Acute gastriti s [id number] Completed 201112/30/2013 IMPRESSI ON: PAIN ON EXAM, TAKE AXID DAILY; RECORDED 01/11/20 12 10:01AM BY ELFEGO BROWNING ON/ADDEN DUM Not Available [facility] 4 05:59:56 Allergic rhinitis 08289151 Completed 201112/30/2013 IMPRESSI ON: TAKE ZYRTEC DAILY; RECORDED 01/11/20 12 10:01AM BY ELFEGO BROWNING ON/ADDEN DUM Not Available [facility] 4 05:59:56 Screenin g for malignan t neoplasm of breast Completed 201112/30/2013 RECORDED 01/11/20 12 10:00AM BY ELFEGO BROWNING ON/ADDEN DUM Not Available [facility] 4 05:59:56 Screenin g for malignan t neoplasm of cervix Completed 201112/30/2013 RECORDED 01/11/20 12 10:01AM BY ELFEGO BROWNING ON/ADDEN DUM Not Available [facility] 4 05:59:56 Vernal conjunct ivitis 424939324 Completed 201112/30/2013 RECORDED 01/11/20 12 10:01AM BY ELFEGO BROWNING ON/ADDEN DUM Not Available [facility] 4 05:59:56 Influenz a vaccine needed [id number] 06 Completed 201112/30/2013 RECORDED 01/11/20 12 10:16AM BY SAIDA BARRETO, OFFICE VISIT Not Available [facility] 4 05:59:56 Well child 492381579 Completed 201112/30/2013 IMPRESSI ON: PAP TODAY; RECORDED 01/11/20 12 10:02AM BY ELFEGO BROWNING ON/ADDEN DUM Not Available [facility] 4 05:59:56 Impacted cerumen 77525477 Completed 201112/30/2013 RECORDED 01/11/20 12 10:01AM BY ELFEGO BROWNING ON/ADDEN DUM Not Available [facility] 4 05:59:56 Pain of joint of hand 943739630 Completed 201112/30/2013 RECORDED 01/11/20 12 10:01AM BY ELFEGO BROWNING ON/ADDEN DUM Not Available [facility] 4 05:59:56 Shoulder joint pain 314493144 Completed 201112/30/2013 IMPRESSI ON: RIGHT UPPER TRAPEZIU S INTO ARM, TRIGGERI NG MIGRAINE S, PAST TX THROUGH DR BERNAL WITH PT AND NEG EMG, ALSO HAD MRI OF CERVICAL SPINE IN PAST, WPT WILL FOLLOWUP WITH DR BERNAL AND SEE DOC AT [facility],; RECORDED 01/11/20 12 10:01AM BY ELFEGO BROWNING ON/ADDEN DUM Not Available [facility] 4 05:59:56 Screenin g for malignan t neoplasm of colon Completed 201112/30/2013 RECORDED 01/11/20 12 10:01AM BY ELFEGO BROWNING ON/ADDEN DUM Not Available [facility] 4 05:59:56 Endometr iosis (clinica l) 344731654 Completed 201212/10/2013 RECORDED 06/19/19 13 1:37AM BY MICHELLE KIRBY MA, OFFICE VISIT Not Available [facility] 4 15:11:59 Endometr iosis (clinica l) 982082519 Completed 201212/30/2013 RECORDED 06/19/19 13 1:37AM BY MICHELLE KIRBY MA, OFFICE VISIT Not Available [facility] 4 05:59:56 Backache 655741183 Completed 201202/06/2017 RECORDED 01/11/20 13 10:02AM BY SAIDA BARRETO, OFFICE VISIT Lucina swenson [facility] 7 09:45:16 Disorder of bone and articula r cartilag e 559554956 Completed 201212/10/2013 IMPRESSI ON: LONG TALK, I THINK PT SHOULD TAKE FOSAMAX, HAVING BONE LOSS, FAMILY HX, DOING ALL THE OTHER PREVENTI ON; RECORDED 01/11/20 13 9:52AM BY ELFEGO BROWNING ON/ADDEN DUM Lucina swenson [facility] 7 09:45:20 Malaise and fatigue 119592308 Completed 201212/10/2013 RECORDED 01/11/20 13 9:53AM BY ELFEGO BROWNING ON/ADDEN DUM Lucina swenson [facility] 7 09:45:26 Gastroes ophageal reflux disease 632786186 Active 2012 MIGUEL Greenberg, [facility] 2 10:14:03 Adult health examinat ion Completed 201202/06/2017 IMPRESSI ON: DOING WELL, MAMMOGRA M UTD, PAP IN A YEAR COLONOSC OPY UTD, PT TO CONTINUE TO EXERCISE , STRETCH MORE; RECORDED 01/11/20 13 10:45AM BY LUCINA Car MD, OFFICE VISIT MIGUEL Browning, [facility] 7 09:15:26 Adult health examinat ion Completed 201212/10/2013 IMPRESSI ON: PAP IS UTD, BIMANUAL EXAM TODAY AND RECTAL, COLONOSP CY WITHOUT A GOOD PREP BUT PT DOES NOT WANT TO REPEAT COLONSCO Y UNTIL 10 YEAR ROBB WHICH IS 2013.; RECORDED 01/11/20 13 9:51AM BY ELFEGO BROWNING ON/ADDEN DUM MIGUEL Browning, [facility] 7 09:15:26 Pure hypercho lesterol emia 975685011 Completed 201202/06/2017 RECORDED 01/11/20 13 10:02AM BY SAIDA BARRETO, OFFICE VISIT Lucina swenson [facility] 7 09:45:24 Malaise and fatigue 633948621 Completed 201202/06/2017 IMPRESSI ON: EXTREME FATIGUE, LOTS OF SOCIAL STRESSES , SLEEPING A BIT BETTER, CONTINUE COUNSELI NG; RECORDED 01/11/20 13 10:02AM BY SAIDA BARRETO, OFFICE VISIT Lucina swenson [facility] 7 09:45:26 Mammogra phy abnormal 571030136 Completed 201202/06/2017 RECORDED 01/11/20 13 10:02AM BY SAIDA BARRETO, OFFICE VISIT Lucina swenson [facility] 7 09:45:30 Migraine 09604620 Active 2012 IMPRESSI ON: SEES DR BERNAL FOR MIGRAINE S, USES MEDS PRN, I TOLD PT IF SHE GETS ANY CHEST PAIN OR PRESSURE WITH IMITREX SHE SHOULD STOP IT AND CALL ME; RECORDED 01/11/20 13 10:41AM BY LUCINA Car MD, OFFICE VISIT MIGUEL Browning, [facility] 0 09:30:42 Fibromyo sitis 81734332 Completed 201212/10/2013 IMPRESSI ON: PT IS QUITE UNCOMFOR TABLE, MUSCLE PAIN IS INTERFER ING WITH EXERCISE , MOST LIKELY FIBROMYA LGIA PT TO SEE RHEUMATO LOGY FOR EVAL AND MEDS, WILL DO LABS BELOW. NEW PROBLEM TO EXAMINER ; RECORDED 01/11/20 13 9:52AM BY ELFEGO BROWNING ON/ADDEN DUM Not Available [facility] 4 15:11:59 Disorder of bone and articula r cartilag e 374574674 Completed 201202/06/2017 IMPRESSI ON: SEES Oral K, CHECK LABS AND HLEP PT IWTH AMOUT TO SUPPLEME NT; RECORDED 01/11/20 13 10:45AM BY LUCINA Car MD, OFFICE VISIT Lucina swenson [facility] 7 09:45:20 Disorder of bone and articula r cartilag e 954345776 Completed 201212/30/2013 IMPRESSI ON: LONG TALK, I THINK PT SHOULD TAKE FOSAMAX, HAVING BONE LOSS, FAMILY HX, DOING ALL THE OTHER PREVENTI ON; RECORDED 01/11/20 13 9:52AM BY ELFEGO BROWNING ON/ADDEN DUM Lucina swenson [facility] 7 09:45:20 Malaise and fatigue 356883093 Completed 201212/30/2013 RECORDED 01/11/20 13 9:53AM BY ELFEGO BROWNING ON/ADDEN DUM Lucina swenson [facility] 7 09:45:26 Fibromyo sitis 30768176 Completed 201212/30/2013 IMPRESSI ON: PT IS QUITE UNCOMFOR TABLE, MUSCLE PAIN IS INTERFER ING WITH EXERCISE , MOST LIKELY FIBROMYA LGIA PT TO SEE RHEUMATO LOGY FOR EVAL AND MEDS, WILL DO LABS BELOW. NEW PROBLEM TO EXAMINER ; RECORDED 01/11/20 13 9:52AM BY ELFEGO BROWNING ON/ADDEN DUM Not Available [facility] 4 05:59:56 Factor V Leiden mutation 609752400 Active 2018 MIGUEL Browning, [facility] 0 09:30:42 Senile osteopor osis 04069380 Completed 201811/21/2019 JULIA CASIANO MD [address], [place], [address] , [facility] 5 13:42:09 Hypogamm aglobuli nemia 069043209 Active 2018 MIGUEL Browning, [facility] 0 09:30:42 History of melanoma in situ of skin 71617806851 06 Active 2022 Lucina swenson [facility] 3 14:05:39 Vitamin D deficien cy 58212237 Active 2022 MIGUEL Browning, [facility] 4 09:43:17 Fracture of distal end of radius 026506292 Completed 202211/26/2024 JULIA CASAINO MD [address], [place], [address] , [facility] 5 13:41:52 Statin declined 325623886 Completed 202312/01/2024 JULIA CASIANO MD [address], [place], [address] , [facility] 5 13:46:03 Mixed hyperlip idemia 142527607 Active 2024 JULIA CASIANO MD [address], [place], [address] , [facility] 5 13:46:19 Dysuria 28846008 Active 2024 Maya nicole MA null, [facility] 5 10:59:19 Notes:statin declined Problem Notes None recorded. Procedures Surgical History Date Name Laterality Status Provider Name and Address Organization Details Recorded Time 11/28 Advanced Care Planning completed JULIA CASIANO MD [address], [place], [address] , [facility] 5 08:34:47 10/07 Most Recent Mammogram completed Caity Bryan [facility] 5 13:34:09 10/07 Mammogram screening completed Caity Bryan [facility] 5 13:33:58 11/26 Advanced Care Planning completed JULIA CASIANO MD [address], [place], [address] , [facility] 4 12:30:12 12/23 Advanced Care Planning completed Saida Barreto MA [facility] 2 10:21:59 12/10 Most Recent Bone Density completed Ulices Lockett [facility] 2 09:37:25 12/10 Dxa bone density poncho vrt fx completed Abimbola Dawson [facility] 2 09:37:16 12/01 Date of Last Colonoscopy completed Eufemia Marin [facility] 2 14:27:03 12/01 Colonoscopy completed Eufemia Marin [facility] 2 14:26:51 12/01 esophagogastroduodenoscopy completed Yesy Dawson [facility] 2 15:30:16 03/13 Six-Item Cognitive Test completed Saida Barreto MA [facility] 0 09:01:18 02/14 Mini-Cog Test completed Saida Barreto MA [facility] 9 10:21:08 01/22 Date of Last Pap Smear completed Saida Barreto MA [facility] 8 14:03:25 05/22 Appendectomy completed Saida Barreto MA [facility] 0 08:46:03 05/22 Tubal Ligation completed Saida Barreto MA [facility] 0 08:46:03 Laparotomy completed Gely Nichols MA [facility] 6 08:57:50 Imaging Results None recorded. Procedure Notes None recorded. Medical Equipment None Reported. Allergies Allergen ID Allergen Name Allergen Category Reaction Reaction Severity Criticality Documentation Date Start Date Code Code System Note Provider Name and Address Organization Details Recorded Time 57441 baclofen medicatio n Not available Not available Not available 02/14/20192018 1292 RxNorm MIGUEL Browning [facility] 4 09:43:09 60667 Forteo medicatio n muscle cramps nausea Not available Not available [facility] 12/23/2021 28611 7 RxNorm MIGUEL Browning [facility] 2 10:29:46 Medications Name Sig Start Date Stop Date Status Note LastModified by Organization Details LastModified Time amoxicill in 500 mg capsule po prn dental work 11/20 completed Not Available Not Available Not Available triazolam 0.25 mg tablet 02/14 completed Not Available Not Available Not Available azithromy yanna 250 mg tablet TAKE 2 TABLETS BY MOUTH TODAY, THEN TAKE 1 TABLET DAILY FOR 4 DAYS 09/30 completed Not Available Not Available Not Available ibuprofen 800 mg tablet Take 0.5 tablets every 6 hours by oral route as needed. active Not Available Not Available No t Available alendrona te 70 mg tablet Take 1 tablet every week by oral route for 84 days. 02/02 completed Not Available Not Available Not Available sumatript an 5 mg/actuat ion nasal spray 02/14 completed Not Available Not Available Not Available naproxen 250 mg tablet PRN 01/10 completed RECORDED 01/11/20 12 10:15AM BY SAIDA BARRETO, OFFICE VISIT;DR BERNAL Not Available Not Available Not Available nizatidin e 150 mg capsule Take 1 capsule twice a day by oral route. 11/20 completed prn Not Available Not Available Not Available sulfameth oxazole 800 mg-trimet hoprim 160 mg tablet TAKE 1 TABLET BY MOUTH EVERY 12 HOURS FOR 5 DAYS 04/29 completed Not Available Not Available Not Available omeprazol e 40 mg capsule,d elayed release Take 1 capsule every day by oral route as needed for 90 days. 09/30 completed Not Available Not Available Not Available butalbita l-acetami nophen-ca ffeine 50 mg-325 mg-40 mg tablet NEEDED 02/14 completed po Not Available Not Available Not Available magnesium oxide 400 mg (241.3 mg magnesium ) tablet 02/13 completed Not Available Not Available Not Available baclofen 10 mg tablet 02/14 completed Not Available Not Available Not Available benzonata te 100 mg capsule Take 1 capsule 3 times a day by oral route for 10 days. 02/06 completed Not Available Not Available Not Available cephalexi n 500 mg capsule Take 1 capsule every 8 hours by oral route for 5 days. 09/26 completed Not Available Not Available Not Available olopatadi ne 0.1 % eye drops BID 01/10 completed RECORDED 01/11/20 13 10:04AM BY SAIDA BARRETO, OFFICE VISIT; Not Available Not Available Not Available Imitrex 6 mg/0.5 mL subcutane ous solution NEEDED 01/10 completed RECORDED 01/11/20 13 10:04AM BY SAIDA BARRETO, OFFICE VISIT; Not Available Not Available Not Available codeine 10 mg-guaife nesin 100 mg/5 mL oral liquid TAKE 10 ML BY MOUTH EVERY 4 HOURS FOR 5 DAYS 09/30 completed Not Available Not Available Not Available mupirocin 2 % topical ointment APPLY TOPICALL Y TWICE DAILY TO SURGICAL SITE X 7-14 DAYS. 09/30 completed Not Available Not Available Not Available lorazepam 1 mg tablet QHS PRN INSOMNIA 03/14 completed RECORDED 04/16/20 08 2:27PM BY LUCINA Car MD, MEDICATI ON AUTO-JOHN PAUL CTIVATIO N; Not Available Not Available Not Available sumatript an 20 mg/actuat ion nasal spray PLEASE SEE ATTACHED FOR DETAILED DIRECTIO NS active prn Not Available Not Available No t Available fluticaso ne propionat e 50 mcg/actua tion nasal spray,darron pension [place] 1 {spray} every day by nasal route as needed. active Not Available Not Available No t Available doxycycli ne hyclate 100 mg tablet TAKE 1 TABLET BY MOUTH TWICE A DAY DIRECTED 12/23 completed Not Available Not Available Not Available tobramyci n 0.3 %-dexamet hasone 0.1 % eye drops,darron pension Instill 1 drop 3 times a week by ophthalm ic route as directed for 10 days. 09/30 completed Not Available Not Available Not Available Benadryl 25 mg capsule Take 1 capsule every day by oral route as needed. active uses for allergie s Not Available Not Available Not Available Pneumovax -23 25 mcg/0.5 mL injection syringe PHARMACY ADMINIST ERED 03/13 completed Not Available Not Available Not Available rosuvasta tin 10 mg tablet Take 1 tablet every day by oral route for 90 days. 2024 active Not Available Not Available Not Avai lable calcium BID 01/10 completed RECORDED 01/11/20 13 10:05AM BY SAIDA BARRETO, OFFICE VISIT;AL SO HAS 400 MGS OF VITAMIN D Not Available Not Available Not Available ibuprofen 800 mg 1 po qd 03/13 completed Not Available Not Available Not Available Glucosami ne 1 tablet daily active 1200mg Not Available Not Available No t Available Zostavax (PF) 19,400 unit/0.65 mL subcutane ous suspensio n SHAMEKA X 1 active Not Available Not Available Not Available Calcium 600 + D(3) 600 mg-10 mcg (400 unit) tablet Take 1 tablet every day by oral route. 09/19 completed Not Available Not Available Not Available omeprazol e 20 mg tablet,de layed release Take 1 tablet every day by oral route in the morning. 01/05 completed OTC Not Available Not Available Not Available Aller-Cathy 10 mg tablet Take 1 tablet every day by oral route. 02/14 completed Not Available Not Available Not Available cholecalc iferol (vitamin D3) 50 mcg (2,000 unit) capsule 04/29 completed Not Available Not Available Not Available cholecalc iferol (vitamin D3) 50 mcg (2,000 unit) tablet Take 1 tablet every day by oral route. active Not Available Not Available No t Available Forteo 20 mcg/dose (560 mcg/2.24 mL) subcutane ous pen injector Inject 1 mL twice a week by subcutan eous route. 12/23 completed Not Available Not Available Not Available Afluria 7602-5539 45 mcg (15 mcg x 3)/0.5 mL intramusc ular suspensio n active Not Available Not Available Not Available Afluria 7086-6927 (PF) 45 mcg (15 mcg x 3)/0.5 mL IM syringe 02/02 completed Not Available Not Available Not Available Fluarix Quad 6865-0634 (PF) 60 mcg (15 mcg x 4)/0.5 mL IM syringe 09/19 completed Not Available Not Available Not Available Fluarix Quad 4010-0410 (PF) 60 mcg (15 mcg x 4)/0.5 mL IM syringe 02/06 completed Not Available Not Available Not Available Shingrix (PF) 50 mcg/0.5 mL intramusc ular suspensio n, kit 02/14 completed Not Available Not Available Not Available Flucelvax Quad (PF) 60 mcg (15 mcg x 4)/0.5 mL IM syringe 02/13 completed Not Available Not Available Not Available Fluad 65yr up(PF)45 mcg(15 mcgx3)/0. 5 mL intramusc ular syringe 02/14 completed Not Available Not Available Not Available Fluzone High-Dose Quad 2020-21 (PF) 240 mcg/0.7 mL IM syringe 03/13 completed Not Available Not Available Not Available Vitals Date Recorded Body height Body mass index (BMI) Body weight Heart rate Oxygen saturation Oxygen saturation in Arterial blood by Pulse oximetry Body temperature Systolic And Diastolic Provider Name and Address Organization Details Last Updated DateTime 5 175.26 cm 23.3 kg/m2 48828.5 9 g 75 /min 96 % 96 % 98.1 [degF] 120/69 mm[Hg] Gail [facility] 5 11:00:47 Date Recorded Body height Body mass index (BMI) Body weight Heart rate Oxygen saturation Oxygen saturation in Arterial blood by Pulse oximetry Body temperature Systolic And Diastolic Provider Name and Address Organization Details Last Updated DateTime 5 175.26 cm 22.9 kg/m2 61887.8 2 g 68 /min 99 % 99 % 97.6 [degF] 113/67 mm[Hg] Yuki Garcia MA [facility] 5 08:05:21 Date Recorded Body height Body mass index (BMI) Body weight Heart rate Oxygen saturation Oxygen saturation in Arterial blood by Pulse oximetry Body temperature Systolic And Diastolic Provider Name and Address Organization Details Last Updated DateTime 5 175.26 cm 23.2 kg/m2 00647 g 88 /min 98 % 98 % 97.9 [degF] 106/66 mm[Hg] Maya dumas MA [facility] 5 10:59:48 Date Recorded Body height Body mass index (BMI) Body weight Heart rate Oxygen saturation Oxygen saturation in Arterial blood by Pulse oximetry Body temperature Systolic And Diastolic Provider Name and Address Organization Details Last Updated DateTime 4 175.26 cm 23.2 kg/m2 98570.4 g 68 /min 97 % 97 % 97.8 [degF] 124/77 mm[Hg] Gail Mat[facility] 4 09:20:55 Date Recorded Body height Body mass index (BMI) Body weight Oxygen saturation Oxygen saturation in Arterial blood by Pulse oximetry Heart rate Body temperature Systolic And Diastolic Provider Name and Address Organization Details Last Updated DateTime 4 175.26 cm 23.5 kg/m2 16391.8 9 g 100 % 100 % 74 /min 97.7 [degF] 125/70 mm[Hg] Saida Barreto MA [facility] 4 09:51:21 Social History Question Answer Notes LastModified by Organizat ion Details LastModified Time Tobacco Smoking Status [facility] 14:41:48 Do You Have An Advance Directive? No Information not available 12/23/2021 Is Blood Transfusion Acceptable In An Emergency? Yes Information not available 01/22/2015 What Is Your Level Of Caffeine Consumption? Moderate [email or web address] Information not available 01/22/2014 How Much Tobacco Do You Chew? None Information not available 01/22/2015 What Type Of Diet Are You Following? SPECIFIC [email or web address] Information not available 12/23/2021 Which Illicit Or Recreational Drugs Have You Used? N/A Information not available 01/22/2015 When Did You Quit Smoking? 16+yearssinc [email or web address] Information not available 12/23/2021 Are There Any Guns Present In Your Home? No [email or web address] Information not available 12/23/2021 Live Alone Or With Others? With Others [email or web address] Information not available 12/23/2021 Do You Take Precautions To Prevent Distracted Driving? Yes Information not available 01/22/2015 How Often Do You Need To Have Someone Help You When You Read Instructions, Pamphlets, Or Other Written Material From Your Doctor Or Pharmacy? Never Information not available 01/22/2015 Have You Served In The ? No [email or web address] Information not available 02/03/2016 Have You Or Anyone In Your Household Had Any Of The Following Symptoms In The Last 14 Days: Sore Throat, Cough, Chills, Body Aches For Unknown Reasons, Shortness Of Breath For Unknown Reasons, Loss Of Smell, Loss Of Taste, Fever At Or Greater Than 100 Degrees Fahrenheit? No [email or web address] Information not available 03/13/2020 Are You Or Anyone In Your Household A Health Care Provider Or Emergency Responder? No [email or web address] Information not available 12/23/2021 To The Best Of Your Knowledge Have You Been In Close Proximity To Any Individual Who Tested Positive For COVID-19? No [email or web address] Information not available 03/13/2020 *AWV ONLY* Are You Presently Prescribed Opioid Medication By PCP Or Specialist? If YES -Provider Assess The Benefit For Other, Non-opioid Pain Therapies Instead, Even If The Patient Does Not Have OUD But Is Possibly At Risk. No [email or web address] Information not available 03/13/2020 What Was The Date Of Your Most Recent Tobacco Screening? 11/28/2024 [email or web address] Information not available 11/28/2024 How Many Children Do You Have? 0 [email or web address] Information not available 12/23/2021 What Is Your Current Pack Years? 10packyears [email or web address] Information not available 12/23/2021 Do You Use Protection During Sex? No [email or web address] Information not available 03/13/2020 Do You Use Your Seat Belt Or Car Seat Routinely? Yes [email or web address] Information not available 12/23/2021 Seat Belts Used Routinely Yes [email or web address] Information not available 12/23/2021 Are You Sexually Active? Yes Information not available 03/13/2020 Smoke Alarm In Home Yes [email or web address] Information not available 12/23/2021 Do You Have Smoke And Carbon Monoxide Detectors In Your Home? Yes [email or web address] Information not available 12/23/2021 At What Age Did You Start Smoking Tobacco? 16 Information not available 01/22/2015 Are You Passively Exposed To Smoke? No Information not available 01/22/2015 How Much Tobacco Do You Smoke? 1 PPW 1/2 A Week [email or web address] Information not available 03/13/2020 General Stress Level Medium [email or web address] Information not available 12/23/2021 Do You Use Sunscreen Routinely? Yes Information not available 01/22/2014 How Many Years Have You Smoked Tobacco? 8 [email or web address] Information not available 01/22/2014 Sex: Unknown Functional Status Question Answer Note LastModified by Organizat ion Details LastModified Time Do you or have you ever used any other forms of tobacco or nicotine? No Information not available 12/23/2021 What is your level of alcohol consumption? Occasional [email or web address] Information not available 01/22/2014 Do you or have you ever used smokeless tobacco? Never used smokeless tobacco [email or web address] Information not available 03/13/2020 Are you currently employed? No [email or web address] Information not available 03/13/2020 Are you able to walk? YESWOREST [email or web address] Information not available 12/23/2021 Are you able to care for yourself? Yes [email or web address] Information not available 01/22/2014 What is your occupation? n/a [email or web address] Information not available 12/23/2021 Do you or have you ever used e-cigarettes or vape? Never used electronic cigarettes [email or web address] Information not available 12/23/2021 What is your exercise level? Moderate [email or web address] Information not available 01/22/2014 Mental Status None recorded. Family History Relationship Description Onset Age of this Age Resolved Age Notes LastModified by Organization Details LastModified Time Mother Carcinoma in situ of breast [email or web address] Not available 12/23 10:20:05 Mother Arthritis [email or web address] Not availa ble 03/13/2020 08:45:22 Mother Osteoporosis [email or web address] Not brielle ilable 12/23/2021 10:20:05 Mother Migraine [email or web address] Not availab le 03/13/2020 08:45:22 Mother Malignant tumor of breast [email or web address] Not available 03/13 08:45:22 Mother Blood coagulation disorder [email or web address] Not available 12/23 10:20:05 Mother Cerebrovascu lar accident Not available 10:20:05 Maternal Grandmother Carcinoma in situ of breast [email or web address] Not available 12/23 10:20:05 Maternal Grandmother Malignant tumor of breast [email or web address] Not available 12/23 10:20:05 Father Heart disease [email or web address] Not available 03/13 08:45:22 Father Hypertensive disorder [email or web address] Not available 03/13 08:45:22 Father Depressive disorder [email or web address] Not available 08/04 /2022 10:20:05 Unspecified Relation Hypertensive disorder [email or web address] Not available 12/23 10:20:05 Unspecified Relation Diabetes mellitus [email or web address] Not available 12/23 10:20:05 Maternal Grandfather Harmful pattern of use of alcohol [email or web address] Not available 03/13 08:45:23 Maternal Grandfather Substance abuse [email or web address] Not available 12/23 10:20:05 Sister Allergy [email or web address] Not availabl e 03/13/2020 08:45:23 Sister Migraine [email or web address] Not availab le 12/23/2021 10:20:05 Maternal Aunt Osteoporosis [email or web address] Not available 12/23/2021 10:20:05 Notes:No FH of colon cancer Medical History Condition Response Coronary Artery Disease N Gout N Other N Blood Diseases N Kidney Stones N Hyperthyroidism N Breast Cancer N mrsa exposure N Lung Disease N Hypothyroidism N Depression N COPD N Defects or Inherited Disease N Developmental or Behavioral Disorders N Breast Problem N Anesthesia Complications N Headaches/Migraines Y Varicose Veins N Anxiety Disorder N Muscle, Joint, or Bone Problems N Obesity N Vision or Eye Problems Y Arthritis Y Head Injury/Concussion Y Infertility N Polyps Y Mental Disorder N Congenital Anomalies N Acid Reflux (GERD) Y Cancer N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 identified . [id number] JULIA CASIANO MD Main Office [address] [facility] [address] [facility] [place], [place] [address] 11/28/2024 08:00:42 11/28/2024 08:33:39 General examination of patient [id number] Z00.00 Health Maintenanc e FemaleA) Patient was counseled on healthy diet, exercise and nutrition due to BMI of 22.9 B) ScreeningL ast Mammogram: start at age 48 stop at 72Date: 10/07/2024R esult: BIRADS-1Ne xt: 09/2025 Last Pap smear: aged out Last Colonoscop y: start at age 45-75Date: 12/01/2021 esult: internal hemorrhoid sNext: hx of tubular adenoma, 5 years Last DEXA scan:Date: 11/25/2024Re sult: osteoporos isNext: 11/2026, this followed by endo C) Vaccines:I nfluenza: 01/19/2024T dAP: 02/13/2018Z lesa: 01/04/2019, 3P CV13: 01/04/2019P PSV23: 01/20/2020C OVID: 07/21/2020, 08/18/2020, 03/19/2021 , 12/16/2021, 09/29/2022, 03/22/2024 D) Routine blood work orderedE) Updated patient's history RTC in one year for annual exam or sooner if any acute complaints Factor V L eiden mutation [id number] D68.51 Gastroesop hageal reflux disease 577700746 K21.9 The following lifestyle changes are recommende d and counseled :-Losing weight: Losing weight helps people who are overweight to reduce acid reflux.-Ra ising the head of your bed six to eight inches-Harley iding foods that trigger symptoms Avoid excessive caffeine, chocolate, alcohol, peppermint , and fatty foods. Hypogammaglobulinemia 11 7097942 D80.1 History of melanoma in situ of skin 0413355254 106 Z86.006 - located on the right upper arm- pt wears sunscreen and protective clothing- follows with derm Migraine 79738645 G43.90 9 - c/s sumatripta n as needed- pt follows with neurology, last seen on 09/12> headaches associated with torticolli s, pt has botox injection -> follows with neuro [facility]> for the torticolli s pt will do an ice pack and ibuprofen Osteoporosis 93618216 M8 1.0 - Did not tolerate forteo or alendronat e> forteo: nauseous, lack of clarity -> did keep up with three years> alendronat e: sick- pt does follow with endo (who orders the bone scans)- c/w vitmain D and calcium- pt counselled on weight bearing exercises Statin declined 03484610 0 Z53.20 Mixed hyperlipidemia 267 069894 E78.2 - ASCVD score 8.5%- lipid profile 04/2024: cholestero l-199, HDL-70, triglyceri vignesh-64, LDL-117- pt declines statin therapy at this time Pt counselled on:- Eat a heart-heal thy diet- Choose healthy fats. Avoid saturated fats that are found primarily in red meat, peres, sausage, and full-fat dairy products. Advised to choose lean proteins like chicken, turkey, and fish when possible. Switch to low-fat or fat-free dairy. And use monounsatu rated fats like olive and canola oil for cooking.- Cut out the trans fats. Trans fats are found in fried food and processed foods, like cookies, crackers, and other snacks.- Eat more omega-3s. Counseled on eating more fish, including salmon, mackerel, simmons ,nuts and seeds, like walnuts and flax seeds.- Increase your fiber intake. By eating more oats, brain, fruits, beans, and vegetables , can lower your LDL cholestero l levels.- Eat more fruits and veggies. Advance care planning 71 9107538 Z71.89 - HCP on file- pt is working with her billing and quality technician for last will and testament, she will have a section for her medical wishes. she will give a PCP once complete [id number] Isaiah Pastor MD Main Office [address] [facility] [place] [address] 12/07/2024 10:32:28 12/07/2024 11:24:11 Dysuria 60460724 R30.0 She has WBC's in her urine but the last time she was having symptoms her urine culture was negative. We will send the urine for culture and await the results before starting on abx. In addition we will refer her to a urologist given her recurrent symptoms. Health Concerns Section Related Observation LastModified by Organization Detai ls LastModified Time None Recorded Concern Status LastModified by Organization Details LastModified Time None Recorded Advance Directives Directive N: Payers Insurance Date Sequence Insurance Name Policy Number Policy De Guzman Covered Member ID De Guzman Member ID Guarantor Name 12/07/2024 1 MEDICARE [place]: [employer] Arlene P Xu [id number] Geraldo Xu 01/22/2014 1 SOHA Bañuelosamor Tubbs[employer] [id number] Geraldo Mcnair 12/07/2024 2 [facility] [employer] (PPO) [address] Mcnair [id number] Geraldo Xu Notes Date Note Type Note Provider Name and Address Organization Details Recorded Time 12/25/2023 text/html DysuriaReported bypatient.Quality:pre ssure Severity:improving; moderate Duration:constant Context:no known exposure to STD;sexually active;prior history of STDs Associated Symptoms:no fever; no blisters on genitals; no rash on genitals; no blood in the urine; no flank pain [place] - [facility] 12/25/2023 10:18:08 04/29/2024 text/html GERD RefluxRepor inder bypatient.SymptomsAsy mptomatic Severity:improving Angi Mcnair is a 68 year old F who presented to the clinic for follow-up on her chronic conditions. Pt has no complaints at this time. Pt was recently seen by GI on 03/2024 for recurrent diarrhea and abdominal pain. Pt was advised to start benefiber and an x-ray of the abdomen was ordered. Has been taking benefiber daily. JULIA CASIANO MD [address], [address], [facility] 04/29/2024 10:10:52 09/14/2024 text/html DysuriaReported bypatient.Quality:bur nora;pressure Severity:worsening; moderate Duration:constant; intermittent Timing:actual date: (09/10) Context:no known exposure to STD;sexually active;prior history of STDs Associated Symptoms:no fever; no blisters on genitals; no rash on genitals; no blood in the urine; no flank pain;hesitancyNotes:S shmuel in December with similar symptoms and diagnosed with weiss sensitive ecoli UTI at that time. Did not tolerate Bactrim very well then. Has been taking OTC AZO and pharmacy uti kit was abnl. Carl Quintero MD [address], [address], [facility] 09/14/2024 11:45:10 11/28/2024 text/html Medicare Annual Wellness VisitReported bypatient.Diet and Nutrition:healthy diet; vitamin D, glucosamine Fracture Risk:history of fractures Physical Activity:exercises on a regular basis; recent increase in physical activity; good physical condition; walking and hiking, does some weights Depression Risk:never feels sad, empty, or tearful; no loss of interest in activities; no significant changes in weight; no sleep disturbances or insomnia; no agitation; no loss of energy; no feelings of worthlessness or guilt; no thoughts of suicide Orientation:no disorientation to time; no disorientation to date; no disorientation to place Concentration and Memory:no decreased concentrating ability; no memory lapses or loss; does not forget words Speech/Motor difficulties:no speech difficulties; no difficulty expressing formulated concepts; no difficulty with fine manipulative tasks; no difficulty writing/copying; no slowed reaction time; does not knock things over when trying to pick them up Hearing:no loss of hearing Vision:no vision problems Activities of Daily Living:able to bathe with limited or no assistance; able to contol urination and bowels; able to dress with limited or no assistance; able to feed self with limited or no assistance; able to get out of chair or bed with limited or no assistance; able to groom with limited or no assistance; able to toilet with limited or no assistance; very mild urinary incontinence Instrumental Activities of Daily Living:able to do house work with limited or no assistance; able to grocery shop with limited or no assistance; able to manage medications with limited or no assistance; able to manage money with limited or no assistance; able to prepare meals with limited or no assistance; able to use the phone with limited or no assistance Falls Risk Assessment:no frequent falls while walking; no fall since last visit; no dizziness/vertigo; fall(s) in the past year 0 Home Safety:no unsafe frederick hazzards; no unsafe stairs; no unsafe gas appliances; working smoke/CO detectors; wears protective head gear for biking/high velocity; use of seatbelts; practicing 'safer sex'; no vision or hearing loss while driving; no fire arms; has hand bars in the bathroom/shower; good lighting in the home Medicare Odalis Mcnair is a 69 year old F who presents to complete their Annual Wellness Visit. Visit Type: Annual How would you rate your health? Good Have you been discharged from the hospital recently? NoHave you been to the emergency room or urgent care recently? NoDo you have any significant previous hospital stays, injuries, or treatment? No Home Safety:Is the tub or shower floor slippery and do you need support? NoDo you need some support when you get in and out of the tub or from the toilet? No however patient had install sturdy grab bars in the showerDo you have any small rugs or runners that slide or bunch up when you push them with your foot? NoAre there papers, books, towels, shoes, magazines, boxes, blankets, or other objects on the floor? No The patient does have a history of falls. Oral Health: every 6 monthsEye Health: does not see on a regular basis (late 2022)Motor Vehicle: Drives, Do you wear a seatbelt when in a car? yes Screening Tools:Were there any ADL or IADL deficiencies not linked to physical limitations? NoDuring the past 12 months, have you experienced confusion or memory loss that is happening more often or is getting worse? No Advance Directive: none on file JULIA CASIANO MD [address] [address], [place], [phone], [facility] 11/28/2024 08:36:32 12/07/2024 text/html She has been hav ing urinary frequency over the last few days along with some discomfort in her lower abdomen but no actual burning on urination. She had a documented e coli UTI December 2023 and although she had symptoms again in August 2024, her culture was negative. She only started having problems over the past year including some urinary incontinence. She drinks 2 cups of caffeinated coffee in the am and has only occasional citric or alcohol. Denies back pain. Isaiah Pastor MD [address] [address], [place], [address], [facility] 12/07/2024 12:40:35 OBGyn Episode No OBEpisode recorded.
--- OUTSIDE RECORDS SUMMARY | 2024-12-10 07:56 | XMS_ITS | Clinical Summary ---
Author Organization [facility] Address [address] [place] [address] Phone Care Team Providers Care Combustion Engineer Name Role Phone Julia Casiano MD Primary Care Provider [phone] Allergies Active Allergy Reactions Criticality Noted Date [...] pathological fracture 03/19/2019 Factor V Leiden carrier ([facility] V24) 03/19/2019 Encounters Date Type Department Care Team Description 11/25/2024 9:43 AM EDT - 11/25/2024 11:59 PM EDT Hospital Encounter [facility] Bone Density [address] [place] [address] Osteoporosis screening Discharge Disposition: Home or Self Care from Last 3 Months Surgical History Surgery Date Site/Laterality Comments COLONOSCOPY [...] 04/11/2024 2:48 PM EST Plan of Treatment Health Maintenance Due Date Last Done Comments Cholesterol Screening (Lipid Panel) 04/23/2022 Falls Risk Assessment 04/23/2022 Hepatitis C Screening 04/23/2022 Medicare Annual Wellness Visit 04/23/2022 Social Influencers of Health Screening 04/23/2022 Depression Screening 05/22/2024 COVID-19 Vaccine ( season) 2024 03/22/2024, 02/28/2023, 09/29/2022, Additional history exists Influenza Vaccine (#1) 2025 , 01/10/2023, 01/21/2022, Additional history exists Breast Cancer Screening 10/07/2026 10/07/2024 DTaP,Tdap,and Td Vaccines (3 - Td or Tdap) 02/14/2028 02/13/2018, 01/14/2008 RSV Immunization Adult Patients (1 - 1-dose 75+ series) 2028 Colorectal Cancer Screening: Colonoscopy 05/01/2034 05/01/2024 Osteoporosis Screening (Bone Density Screening) 11/25/2034 11/25/2024, 11/21/2023, 12/10/2021, Additional history exists Pneumococcal Vaccine: 50+ Years Completed 01/20/2020, 01/04/2019 Zoster Vaccines Completed 12/04/2022, 12/20, 12/18/2013, Additional history exists HIB Vaccines Aged Out [...] Procedure Name Priority Date/Time Associated Diagnosis Comments BD BONE DENSITY DXA AXIAL SKELETON Routine 11/25/2024 10:28 AM EDT Osteoporosis screening COLONOSCOPY Routine 05/01/2024 9:11 AM EST from Last 3 Months or Most Recently Relevant to Health Maintenance Results * BD Bone Density DXA Axial Skeleton (11/25/2024 10:28 AM EDT) Anatomical Region Laterality Modality Wrist, Hip, L-spine Bone Densito metry 11/25/2024 5:14 PM EDT Impressions 11/25/2024 5:15 PM EDT Osteoporosis. Telerad VETO ([id number]) -------- FINAL REPORT -------- Dictated By: Cyndie Sanders Dictated Date: 11/25/2024 17:14 ET Assigned Physician: Cyndie Sanders Reviewed and Electronically Signed By: Cyndie Sanders Signed Date: 11/25/2024 17:15 ET Workstation ID: [id number] Transcribed By: Self Edit Transcribed Date: 11/25/2024 17:14 ET Narrative 11/25/2024 5:15 PM EDT History: Low estrogen state due to menopause. Personal history of fracture. Former smoker. Comparison: 11/21/23 Findings: Bone densitometry is performed utilizing dual energy x-ray absorptiometry (DXA) in the [employer] Prodigy unit. The lumbar spine and proximal femora are evaluated in the AP projection. The FRAX questionaire was completed. The results indicate osteoporosis, with a lumbar spine T-score of -3.9. The Z score is -2.4, indicating very low bone mineral density for age. There is been no statistically significant change. The detailed DEXA report will be mailed to the referring physician's office. DualFemur FRAX: 10-year Probability of Fracture: Major Osteoporotic 22.1 percent Hip 5.6 percent. Procedure Note Cyndie Sanders MD - 11/25/2024 History: Low estrogen state due to menopause. Personal history offracture. Former smoker. Comparison: 11/21/23 Findings: Bone densitometry is performed utilizing dual energy x-ray absorptiometry(DXA) in the [employer]ar Prodigy unit. The lumbar spine and proximal femora areevaluated in the AP projection. The FRAX questionaire was completed. The results indicate osteoporosis, with a lumbar spine T-score of -3.9.The Z score is -2.4, indicating very low bone mineral density for age. There is been no statistically significant change. The detailed DEXAreport will be mailed to the referring physician's office. DualFemur FRAX: 10-year Probability of Fracture: Major Osteoporotic 22.1percent Hip 5.6 percent. IMPRESSION: Osteoporosis. Telerad VETO ([id number]) -------- FINAL REPORT -------- Dictated By: Cyndie Sanders Dictated Date: 11/25/2024 17:14 ET Assigned Physician: Cyndie Sanders Reviewed and Electronically Signed By: Cyndie Sanders Signed Date: 11/25/2024 17:15 ET Workstation ID: [id number] Transcribed By: Self Edit Transcribed Date: 11/25/2024 17:14 ET Elaine Hutton MD IMG DXA PROCEDURES Final Resul t * COLONOSCOPY (05/01/2024 9:11 AM EST) Anatomical Region Laterality Modality Endoscopy Historical Provider GI~PROCEDURE ORDERABLES F inal Result from Last 3 Months or Most Recently Relevant to Health Maintenance Insurance MEDICARE [facility] Care Teams Combustion Engineer Relationship Specialty Start Date End Date Julia Casiano MD [address] [phone] PCP - General Internal Medicine 11/21/24
--- OUTSIDE RECORDS SUMMARY | 2024-12-10 07:56 | XMS_ITS | Clinical Summary ---
Author Organization [facility] Address [address] [place] [id number] Phone Care Team Providers Care [employer] Supervisor Name Role Phone Julia Casiano MD Primary Care Provider [phone] Allergies Active Allergy Reactions Criticality Noted Date Comments Baclofen 03/19/2019 Medications SUMAtriptan (IMITREX) 20 mg/actuation nasal spray PLEASE SEE ATTACHED FOR DETAILED DIRECTIONS 3 Active ibuprofen (ADVIL,MOTRIN) 800 MG tablet Take 800 mg by mouth every 6 (six) hours as needed for pain (specific location in comments). Active flaxseed oiL Oil by Miscellaneous route. Active cholecalcifero l (VITAMIN D3) 2,000 unit capsule Take by mouth daily. Active Active Problems Problem Noted Date Diagnosed Date Age-related osteoporosis wit hout current pathological fracture 12/04/2022 Assessment & Plan (12/04/2022 9:05 PM EDT): 67-year-old woman with history of osteopenia of the spine and hip on screening DEXA in 2007. Progressed to osteoporosis at the spine and femoral neck by 2015. No secondary cause for bone loss was found. No fragility fractures. Patient was on alendronate between 09/03 - 06/06, stopped because of side effects. Significant worsening in bone mineral density between 07/2015-08/2018 (10% at LS and 13% at right femoral neck). Forteo started in 08/2019. Dose cut to every other day in 11/2019 because of nausea after injection. Dose cut further to twice a week at the end of 11/2019 and patient stopped treatment on 11/28/2021 because of continued nausea, severe GERD, mental and physical fatigue. She feels back to normal off of Forteo. Her bone mineral density improved because of history of side effects on the alendronate. She remains on adequate calcium and vitamin D significantly between 08/2018- 08/2020 (9% at LS and 4.3% at. The right femoral neck T -2.0, 4.6% improvement. She declined antiresorptive treatment to follow the Forteo femoral neck). Last DEXA from 12/10/2021 compared to DEXA 01/2021. Lumbar spine was stable with T score -3.1. The left femoral neck T score -2.2, 3% improvement. Right femoral neck T -2.0, 4.6% improvement. She declined antiresorptive treatment to follow the Forteo because of previous side effects on alendronate. Her calcium and vitamin D intake is adequate. She is doing well with her weightbearing exercises. No falls, no fracture, no renal stone. Patient would like to stay off of any pharmacologic treatment for her osteoporosis and continue to work on adequate calcium, vitamin D intake, fall prevention and weightbearing exercises. Plan to repeat labs and DEXA after 12/11/2023 at [facility]. Vitamin D deficiency, unspecified 12/04/2022 Social History Tobacco Use Types Packs/Day Years Used Date Smoking Tobacco: Never Assessed Education Answer Date Recorded Are you interested in more education? Not on reji e 09/17/2022 Are you concerned about learning? Not on file 09/17/2022 No 09/17/2022 No 09/17/2022 Digital Access Answer Date Recorded No 10/18/2022 No 10/18/2022 Reliable internet access at home? Not on file 10/18/2022 Device with a working camera? Not on file Comments Unknown Sex and Gender Information Value Date Recorded Sex Assigned at Not on file Legal Sex Female 9:37 AM EDT Gender Identity Not on file Sexual Orientation Not on file Last Filed Vital Signs Vital Sign Reading Time Taken Comments Blood Pressure 122/70 01/08/2024 8:15 AM EDT Pulse 63 11/28/2022 9:23 AM EDT Temperature - - Respiratory Rate - - Oxygen Saturation - - Inhaled Oxygen Concentration - - Weight 72.8 kg (160 lb 6.4 oz) 01/08/2024 8:15 A M EDT Height 175.3 cm (5' 9 ) 01/08/2024 8:15 AM EDT Body Mass Index 23.69 01/08/2024 8:15 AM EDT Plan of Treatment Upcoming Encounters Date Type Department Care Team ([facility] st Contact Info) Description 01/07/2025 8:40 AM EDT Office Visit [facility] [address] [place] [id number] Elaine Hutton MD [address] [place] [phone] [email or web address] Health Maintenance Due Date Last Done Comments LIPID PANEL 1953 DEPRESSION SCREENING 1965 SMOKING Hx and SMOKELESS TOBACCO SCREENING 1966 HEPATITIS C SCREENING 1971 COLOGUARD 1998 COLONOSCOPY 1998 COLORECTAL CANCER SCREENING 1998 FIT TEST 1998 FOBT 1998 SIGMOIDOSCOPY 1998 VIRTUAL COLONOSCOPY 1998 ZOSTER VACCINES (3 of 3) 03/01/2019 019, 12/18/2013, 05/22/2013 COVID-19 VACCINE (3 - 2023-2 5 season) 2024 08/18/2020, 07/21/2020 MAMMOGRAM 10/07/2026 10/07/2024, 10/03/2023, 09/30/2021 Adult Td,Tdap Booster 02/14/2028 02/13/2018 , 01/14/2008 RSV VACCINE (1 - 1-dose 75+ series) 2028 PNEUMOCOCCAL VACCINES (50+ years) Completed 01/20/2020, 01/04/2019 OSTEOPOROSIS SCREENING INITI AL (ONE-TIME) Completed 11/25/2024, 11/21/2023 HEPATITIS A VACCINES Aged Out No long er eligible based on patient's age to complete this topic HIB VACCINES Aged Out No longer eligi ble based on patient's age to complete this topic MENINGOCOCCAL VACCINES (ACWY) Aged Out No longer eligible based on patient's age to complete this topic MENINGOCOCCAL VACCINES (B) Aged Out N o longer eligible based on patient's age to complete this topic Medical Devices Not on file Procedures Procedure Name Priority Date/Time Associated Diagnosis Comments COLLAGEN TYPE 1 C-TELOPEPTIDE Routine 12/03/2024 10:53 AM EDT Age-related osteoporosis without current pathological fracture PHOSPHORUS Routine 12/03/2024 10:53 AM EDT Age-related osteoporosis without current pathological fracture PARATHYROID HORMONE (PTH) Routine 12/03/2024 10:53 AM EDT Age-related osteoporosis without current pathological fracture N-TELOPEPTIDES, RANDOM URINE Routine 12/03/2024 10:53 AM EDT Age-related osteoporosis without current pathological fracture COMPREHENSIVE METABOLIC PANEL Routine 12/03/2024 10:53 AM EDT Age-related osteoporosis without current pathological fracture BD DXA MONITORING Routine 11/21/2023 2:2 6 PM EDT Age-related osteoporosis without current pathological fracture from Last 3 Months or Most Recently Relevant to Health Maintenance Results * Collagen Type 1 C-Telopeptide (12/03/2024 10:53 AM EDT) Blood Elaine Hutton MD LAB BLOOD ORDERABLES Final Res ult Performing Organization Address [facility] de Phone Number EXTERNAL NON-INTERFACED REF LAB * Phosphorus (12/03/2024 10:53 AM EDT) Blood Elaine Hutton MD LAB BLOOD ORDERABLES Final Res ult Performing Organization Address [facility] de Phone Number EXTERNAL NON-INTERFACED REF LAB * Parathyroid hormone (PTH) (12/03/2024 10:53 AM EDT) Blood Elaine Hutton MD LAB BLOOD ORDERABLES Final Res ult Performing Organization Address [facility] de Phone Number EXTERNAL NON-INTERFACED REF LAB * N-telopeptides, random urine (12/03/2024 10:53 AM EDT) Urine (Urine) us Elaine Hutton MD URINE ORDERABLES Final Result EXTERNAL NON-INTERFACED REF LAB * Comprehensive metabolic panel (12/03/2024 10:53 AM EDT) Blood us Elaine Hutton MD LAB BLOOD ORDERABLES Final Res ult EXTERNAL NON-INTERFACED REF LAB from Last 3 Months [place] [id number] [employer] MEDICARE PART A & B [employer] [place] [id number] MEDICARE PART A & B [employer] MEDIC[employer] PART A & B [employer] MEDIC[employer] PART A & B [employer] MEDICARE PART A & B [employer] Care Teams [employer] Supervisor Relationship Specialty Start Date End Date Julia Casiano MD [id number] [facility] [address] [place] [address] PCP - General Family Medicine 01/08/24 Additional Source Comments The information contained in this document represents components of the legal health record. It is not the complete legal health record.[facility]
--- NOTE | 2024-12-10 07:59 | A.OFFVIS_ITS ---
Vital Signs 12/10/24 08:00 Height 5 ft 9 in Weight 157 lb 4 oz BMI 23.2 BP 118/62 Blood Pressure Location Lt brachial Position Sitting Pulse 63 Pulse Source Pulse Oximeter Pulse Oximetry (%) 98 Oxygen Delivery Method Room Air Intake Visit Reasons: Botox (B&B) Intake Note: Patient presents Botox injection Accompanied by: Self / Same As Patient Allergies No Known Allergies Allergy (Verified 12/10/24 08:03) Medication List - Last Reconciled 12/10/24 by Ashley Tolbert MD cholecalciferol (vitamin D3) 25 mcg PO DAILY glucosamine HCl 1,500 mg PO DAILY omeprazole 20 mg PO DAILY onabotulinumtoxinA (Botox) 100 units IM [id number] rosuvastatin 5 mg PO BEDTIME sumatriptan 20 mg/actuation 20 mg intranasal Q2H PRN 90 days HPI Comments Details: 69y/o female comes for treatment of her cervical dystonia and migraines ? Side effects including spread of toxin effect, dysphagia, breathing difficulties , bronchitis etc was discussed in detail and the patient agreed to the procedure.An informed consent was obtained ??? Botulinum toxin type A 200units X 1 -was diluted with 4 cc of normal saline at a concentration of 25 units in 0.5cc saline. Lot number [id number] expiration 02/2027 ??? Muscles injected ???Right Splenius - 75 units e ach ???Right levator 50 units each ???left splenius 25 units each Left levator 25 Right trapezius 25 units ??? Total used 200 units GERD is better with omeprazole PFSH Medical History Melanoma Cervicalgia Osteoporosis Tremors of nervous system Spasmodic torticollis Migraine Family History Family/Other HTN (hypertension) Father History of open heart surgery Mother Brain bleed Social History Alcohol intake: never Patient Tobacco Use Status: Former Tobacco user Physical Exam Vital Signs: Last Vital Signs Pulse 63 12/10/24 08:00 BP 118/62 12/10/24 08:00 Pulse Ox 98 12/10/24 08:00 Oxygen Delivery Method Room Air 12/10/24 08:00 BMI result Body Mass Index 23.2 Const Other: antecollis and right laterocollis General: cooperative and healthy appearing Orientation/consciousness: patient oriented x3 Neuro General: patient oriented x3, gait normal, tone normal and moves all extremities Cranial nerves: Yes CN's II-XII intact bilaterally Cognition (Neuro): normal cognition Gait exam (Neuro): Other gait observations present (antecollis) Office Procedures Botulinum toxin Injection 63061 - Dystonia Procedure code (CPT) selection complete Office Meds onabotulinumtoxinA 200 unit solution for injection Performing Provider: Ashley Tolbert MD Performing Location: [facility] Administered by: Ashley Tolbert MD on 12/10/24 08:54 2 Dose Route Admin Location Dispensed Lot Number Expiration Date [facility] Manager Cargo 200 unit IM 200 units [id number] [employer] /BOTOX Total Dispensed Waste 200 units 0 % Comments: see hpi Assessment & Plan Assessment & Plan (1) Spasmodic torticollis: Code(s): G24.3 - Spasmodic torticollis Category: Medical (2) Migraine: Code(s): G43.909 - Migraine, unspecified, not intractable, without status migrainosus Category: Medical Qualifiers: Migraine type: other Status migrainosus presence: without status migrainosus Intractability: not intractable Qualified Code(s): G43.809 - Other migraine, not intractable, without status migrainosus Plan Patient tolerated the procedure well she will call with any side effects Orders: Orders AMB Botulinum toxin Injection Today G24.3 - Spasmodic torticollis Coding Level of Care Code Est Pt Level 1 (31288) Diagnoses Spasmodic torticollis G24.3 Other migraine without status migrainosus, not intractable G43.809 Migraine type: other Status migrainosus presence: without status migrainosus Intractability: not intractable CPT Codes Botox Injection - Botox 4: 03038 - Dystonia ([id number])
[2024-12-10 08:00] VITALS: BP 118/62; PULSE 63; O2SAT 98; BMI 23.2
== END 2024-12-10 08:25 | disposition home or self-care (01) ==
LOC: HO.HSMS 07:54
PROVIDERS: PCP Internal Medicine; Visit Provider Psychiatry & Neurology Neurology
DX: G24.3 Spasmodic torticollis (principal)
CPT/HCPCS: 64616

== ENCOUNTER → 2024-12-10 07:53 | Outpatient (BNVA) | payer MEDICARE, OTHER, SELFPAY | PROVIDERS: PCP Internal Medicine; Visit Provider Psychiatry & Neurology Neurology | DX: G24.3 Spasmodic torticollis (principal); G43.809 Other migraine, not intractable, without status migrainosus | CPT/HCPCS: 64616; 99211; J0585 ==

== ENCOUNTER 2025-03-18 08:09 | Outpatient (AMB) | payer MEDICARE, OTHER, SELFPAY ==
--- NOTE | 2025-03-18 08:16 | A.OFFVIS_ITS ---
Vital Signs 03/18/25 08:17 Height 5 ft 9 in Weight 158 lb 8 oz BMI 23.4 BP 122/68 Blood Pressure Location Rt brachial Position Sitting Pulse 76 Pulse Source Pulse Oximeter Pulse Oximetry (%) 97 Oxygen Delivery Method Room Air Intake Visit Reasons: Botox Intake Note: Botox 200 Malariologist Required: No Accompanied by: Self / Same As Patient Allergies No Known Allergies Allergy (Verified 03/18/25 08:17) Medication List - Last Reconciled 03/18/25 by Ashley Tolbert MD cholecalciferol (vitamin D3) 25 mcg PO DAILY glucosamine HCl 1,500 mg PO DAILY ibuprofen 800 mg PO Q8H onabotulinumtoxinA (Botox) 100 units IM [id number] sumatriptan 20 mg/actuation 20 mg intranasal Q2H PRN 90 days HPI Comments Details: 69y/o female comes for treatment of her cervical dystonia and migraines ? Side effects including spread of toxin effect, dysphagia, breathing difficulties , bronchitis etc was discussed in detail and the patient agreed to the procedure.An informed consent was obtained ??? Botulinum toxin type A 200units X 1 -was diluted with 4 cc of normal saline at a concentration of 25 units in 0.5cc saline. Lot number [id number] expiration ??? Muscles injected ???Right Splenius - 75 units e ach ???Right levator 50 units each ???left splenius 25 units each Left levator 25 Right trapezius 25 units ??? Total used 200 units GERD is better with omeprazole PFSH Medical History Melanoma Cervicalgia Osteoporosis Tremors of nervous system Spasmodic torticollis Migraine Family History Family/Other HTN (hypertension) Father History of open heart surgery Mother Brain bleed Social History Alcohol intake: never Patient Tobacco Use Status: Former Tobacco user Physical Exam Vital Signs: Last Vital Signs Pulse 76 03/18/25 08:17 BP 122/68 03/18/25 08:17 Pulse Ox 97 03/18/25 08:17 Oxygen Delivery Method Room Air 03/18/25 08:17 BMI result Body Mass Index 23.4 Const Other: antecollis and right laterocollis General: cooperative and healthy appearing Orientation/consciousness: patient oriented x3 Neuro General: patient oriented x3, gait normal, tone normal and moves all extremities Cranial nerves: Yes CN's II-XII intact bilaterally Cognition (Neuro): normal cognition Gait exam (Neuro): Other gait observations present (antecollis) Office Procedures Botulinum toxin Injection 11190 - Dystonia Procedure code (CPT) selection complete Office Meds onabotulinumtoxinA 200 unit solution for injection Performing Provider: Ashley Tolbert MD Performing Location: [facility] Administered by: Ashley Tolbert MD on 03/18/25 08:50 Dose Route Admin Location Dispensed Lot Number Expiration Date [facility] 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 200 unit IM 200 units [id number] [employer] /BOTOX Total Dispensed Waste 200 units 0 % Comments: see hpi Assessment & Plan Assessment & Plan (1) Spasmodic torticollis: Code(s): G24.3 - Spasmodic torticollis Category: Medical (2) Migraine: Code(s): G43.909 - Migraine, unspecified, not intractable, without status migrainosus Category: Medical Qualifiers: Migraine type: other Status migrainosus presence: without status migrainosus Intractability: not intractable Qualified Code(s): G43.809 - Other migraine, not intractable, without status migrainosus Plan Patient tolerated the procedure well she will call with any side effects Orders: Orders AMB Botulinum toxin Injection Today G24.3 - Spasmodic torticollis Coding Level of Care Code Est Pt Level 1 (02085) Diagnoses Spasmodic torticollis G24.3 Other migraine without status migrainosus, not intractable G43.809 Migraine type: other Status migrainosus presence: without status migrainosus Intractability: not intractable CPT Codes Botox Injection - Botox 4: 62363 - Dystonia ([id number])
[2025-03-18 08:17] VITALS: BP 122/68; PULSE 76; O2SAT 97; BMI 23.4
== END 2025-03-18 08:46 | disposition home or self-care (01) ==
LOC: HO.HSMS 08:10
PROVIDERS: PCP Internal Medicine; Visit Provider Psychiatry & Neurology Neurology
DX: G24.3 Spasmodic torticollis (principal)
CPT/HCPCS: 64616

== ENCOUNTER → 2025-03-18 08:09 | Outpatient (BNVA) | payer MEDICARE, OTHER, SELFPAY | PROVIDERS: PCP Internal Medicine; Visit Provider Psychiatry & Neurology Neurology | DX: G24.3 Spasmodic torticollis (principal); G43.809 Other migraine, not intractable, without status migrainosus | CPT/HCPCS: 64616; 99211; J0585 ==